=== PATIENT | female | born 1970 | race African-American/Black ===

== ENCOUNTER 2017-09-06 12:37 | Observation (INO) | payer MEDICARE, SELFPAY ==
[2017-09-06] VITALS (7 sets, daily range): BP systolic 110–142; BP diastolic 85–100; PULSE 54–80; RESP 14–18; TEMP 36.4–36.6; O2SAT 96–100; BMI 37.0; BMI 35.5
--- NOTE | 2017-09-06 13:51 | ED.RN ---
PT VERY DROWSY, FALLS ASLEEP DURING ASSESSMENT AND IV START, AWAKENS TO NAME. DIFFICULTY ANSWERING QUESTIONS, DENIES USING ANY SUBSTANCES OTHER THAN PRESCRIBED XANAX 1 MG TODAY.
--- NOTE | 2017-09-06 14:02 | CT_ITS ---
STUDY: CT BRAIN WITHOUT CONTRAST REASON FOR EXAM: Female, 47 years old. Altered mental status RADIATION DOSAGE (If Supplied By Facility): CTDIvol = ( 44.99 ) mGy, DLP = ( 796.11 ) mGycm TECHNIQUE: Transaxial CT imaging of the brain was performed without administration of intravenous contrast material. Individualized dose optimization techniques were used for this CT. COMPARISON: January 03, 2016 CT scan head FINDINGS: Normal soft tissue structures. Normal calvarium. 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 Normal size ventricles and extra-axial spaces for the patient's age. Normal white matter tracts of the cerebral hemispheres. Normal basal ganglia and thalami. Normal brainstem. Normal cerebellum. There is no intracranial hemorrhage. There are no findings of an acute ischemic infarction. Normal visualized paranasal sinuses. CT/Brain/Head without Contrast IMPRESSION: Normal unenhanced CT scan of the brain. Electronically Signed: Indira Davidson MD at 15:19 EDT Tel , Service support ,
[2017-09-06 14:15] LABS: Absolute Lymphocyte Count 2.74 X10^3/ul (0.83-4.51); Absolute Neutrophil Count 5.2 X10^3/uL (2.0-7.7); Basophil# 0.04 X10^3/uL; Basophil% 0.4 % (0-1); Eosinophil# 0.08 X10^3/uL; Eosinophils% 0.9 % (0-5); Hematocrit 35.8 % (37-47); Hemoglobin 11.8 g/dl (12.0-15.0); Lymphocyte # 2.74 X10^3/ul (4.0); Lymphocyte % 30.6 % (19-41); Mean Corpuscular Hgb 32.3 pg (27.0-32.0); Mean Corpuscular Volume 98.1 fL (81-99); Monocyte# 0.86 X10^3/uL; Monocyte% 9.6 % (0-10); Neutrophil # 5.23 X10^3/uL (2.7-7.7); Neutrophil % 58.4 % (47-70); POSITIVE COUNT NO; POSITIVE DIFFERENTIAL NO; POSITIVE MORPHOLOGY NO; Platelet Count 285 K/mm3 (150-450); RBC Distribution Width CV 13.2 % (11.6-14.6); RBC Distribution Width SD 46.3 fl (35.1-43.9); Red Blood Count 3.65 M/mm3 (4.2-5.4)
--- NOTE | 2017-09-06 14:25 | RAD_ITS ---
STUDY: X-RAY CHEST REASON FOR EXAM: Female, 47 years old. Syncopal episode TECHNIQUE: Single PA view of the chest. COMPARISON: July 07, 2016 chest x-ray FINDINGS: There is a left-sided defibrillator with the lead overlying the mid heart silhouette. The lungs are clear and expanded. There is no demonstrated pleural abnormality. There is borderline cardiac enlargement.. Normal mediastinum and krystian. Normal visualized pulmonary arteries. There is atherosclerotic calcification of the aortic arch with tortuosity. Normal visualized thoracic spine. Normal visualized ribs, clavicles, and shoulders. There is no demonstrated abnormality of the visualized soft tissue structures of the upper abdomen. RAD/Chest 1 View (Portable) IMPRESSION: Allowing for for differences in technique, stable chest. Defibrillator in stable position when compared to prior study. Electronically Signed: Indira Davidson MD at 15:27 EDT Tel , Service support ,
[2017-09-06 14:29] LABS: Anion Gap 9 (5-15); BUN 20 mg/dL (7-18); Chloride 97 mmol/L (98-107); Creatinine, Serum 2.49 mg/dL (0.55-1.02); EST Glomerular Filtration Rate 22 mL/min (>60); Est Glom Filt Rate - Afr Amer 27 mL/min (>60); Estimated Creatinine Clearance 27.87 ml/min; Glucose 87 mg/dL (74-106); Sodium Level 135 mmol/L (136-145)
[2017-09-06 14:51] LABS: Allen Test POS; Base Excess 1 mmol/L (-2 to +2); Bicarbonate 25.3 mmol/L (22-26); Blood Gas Specimen Type ART; O2 Delivery Device Room Air; PO2 64 mmHG (75-100); SITE L Radial; SO2 93 % (95-99); Time Given 1446; Total Carbon Dioxide 26 mmol/L; pCO2 36.8 mmHg (35-45); pH 7.45 (7.35-7.45)
--- NOTE | 2017-09-06 14:58 | EKG12_ITS ---
Test Reason : SYNCOPE Blood Pressure : / mmHG Vent. Rate : 069 BPM Atrial Rate : 069 BPM P-R Int : 166 ms QRS Dur : 076 ms QT Int : 444 ms P-R-T Axes : 061 025 037 degrees QTc Int : 475 ms Normal sinus rhythm Normal ECG Confirmed by MERCEDES MUNIZ, KALEIGH ([id number]), rewrite editor ANJANA DAVID ([id number]) on 09/09/2017 1:57:47 PM Referred By: AG Confirmed By:KALEIGH LONG MD
--- NOTE | 2017-09-06 15:52 | ED.VISSUMM ---
- ER Visit Summary Date of Service: 09/06/17 Chief Complaint: I am tired and stressed out. History of Present Illness: The patient is a 47 F who presents for reported syncope. She was at the [facility]. She was being seen for dental pain. She was reported to have had multiple episodes of syncope. However here she has just seemed tired and kept falling asleep per nursing staff. In speaking to the son he also states that she was just falling asleep and did not actually having syncopal episodes. Family states that she does often get like this after her medications and is on high doses of sedating medications. The patient otherwise has no complaints. She denies recent illness. Physical Examination: Afebrile vitals are stable Moist mucous membranes Patient is alert at the time my exam but does fall asleep easily. She is oriented and has no focal or lateralizing neurological deficits Moist mucous membranes Heart regular rate and rhythm Lungs are clear Abdomen soft Test Results: EKG shows sinus rhythm at a rate of 69. Chest x-ray is stable. CT of the head is normal. ABG does not show hypercapnia. Troponin is normal. Labs otherwise notable for potassium of 3.0 BUN of 20 and creatinine of 2.49 which is significantly increased from prior labs with a creatinine of 1.3. Emergency Department Course and Treatment: My suspicion is that the patient's somnolence is related to the high dose of her gabapentin and also taking benzodiazepines. Family notes that she does get like this after taking her medications. However her labs are also notable for an parent acute kidney injury. She was treated with IV fluids and her potassium was replaced. I do feel she should be admitted for observation repeat labs and monitoring of her mental status. Treatment Plan: [] Disposition: Admit Impression: Acute kidney injury Hypokalemia Altered mental status likely medication related This note was generated with [employer] dictation software. It may contain incorrect words, spelling, and punctuation that were not noted in review of the chart prior to signing ED Disposition - Plan for ED Patient: Chief Complaint: Syncope Referrals: Pito Walker MD [Primary Care Provider] -
--- NOTE | 2017-09-06 15:55 | ED.DCSUM_ITS ---
- ER Visit Summary Date of Service: 09/06/17 Chief Complaint: I am tired and stressed out. History of Present Illness: The patient is a 47 F who presents for reported syncope. She was at the [facility]. She was being seen for dental pain. She was reported to have had multiple episodes of syncope. However here she has just seemed tired and kept falling asleep per nursing staff. In speaking to the son he also states that she was just falling asleep and did not actually having syncopal episodes. Family states that she does often get like this after her medications and is on high doses of sedating medications. The patient otherwise has no complaints. She denies recent illness. Physical Examination: Afebrile vitals are stable Moist mucous membranes Patient is alert at the time my exam but does fall asleep easily. She is oriented and has no focal or lateralizing neurological deficits Moist mucous membranes Heart regular rate and rhythm Lungs are clear Abdomen soft Test Results: EKG shows sinus rhythm at a rate of 69. Chest x-ray is stable. CT of the head is normal. ABG does not show hypercapnia. Troponin is normal. Labs otherwise notable for potassium of 3.0 BUN of 20 and creatinine of 2.49 which is significantly increased from prior labs with a creatinine of 1.3. Emergency Department Course and Treatment: My suspicion is that the patient's somnolence is related to the high dose of her gabapentin and also taking benzodiazepines. Family notes that she does get like this after taking her medications. However her labs are also notable for an parent acute kidney injury. She was treated with IV fluids and her potassium was replaced. I do feel she should be admitted for observation repeat labs and monitoring of her mental status. Treatment Plan: [] Disposition: Admit Impression: Acute kidney injury Hypokalemia Altered mental status likely medication related This note was generated with [employer] dictation software. It may contain incorrect words, spelling, and punctuation that were not noted in review of the chart prior to signing ED Disposition - Plan for ED Patient: Chief Complaint: Syncope Referrals: Pito Walker MD [Primary Care Provider] -
--- NOTE | 2017-09-06 16:27 | PCM.HP.STD ---
<Melania Vogel - Last Filed: 09/06/17 16:55> Problem List (1) Acute deep vein thrombosis (DVT) of left lower extremity Status: Resolved (2) Neuropathy Status: Chronic (3) Neuropathic pain Status: Chronic (4) Chest pain Status: Resolved (5) Coronary artery disease Status: Ruled-out (6) Cardiac arrest with ventricular fibrillation Status: Chronic (7) VTE (venous thromboembolism) Status: Chronic (8) Prolonged Q-T interval on ECG Status: Resolved (9) Status post implantation of automatic cardioverter/defibrillator (AICD) Status: Chronic History of Present Illness Date of Admission: 09/06/17 Chief Complaint: Altered mental status, drowsiness. The patient is a 47 year old F who presents to the emergency room due to reported syncopal episodes and altered mental status during visit at [facility] where she was being seen for tooth pain. She states she was told her blood pressure was low at her appointment and she kept falling asleep. Son of patient spoke with ER staff who states patient was falling asleep and not unresponsive, no true syncope. Family reports this is a common occurrence for patient due to her sedating medications at home. ER nursing staff also report that patient is frequently in ER with similar presenting symptoms. Patient denies chest pain, shortness of breath. She denies and other associated complaints. She states she typically takes xanax twice a day. She states she has been under increased stress lately. She states she lives with her daughter who has a second child on the way and she states it is stressful for her to be living with young children. She denies alcohol or other drug use. Patient has a past medical history of DVT, cardiac arrest with V. fib status post AICD, schizophrenia, history of tobacco use, hypertension, anxiety, depression. Patient states she previously lived in [place] and was told that she had kidney issues at that time but has had no follow-up since. Past Medical History Past Medical History (Chronic Problems): Chronic Problems Neuropathy (Chronic) Neuropathic pain (Chronic) Cardiac arrest with ventricular fibrillation (Chronic) VTE (venous thromboembolism) (Chronic) Status post implantation of automatic cardioverter/defibrillator (AICD) (Chronic) Allergies Penicillins Allergy (Verified 09/06/17 12:41) Swelling Home Medications: Ambulatory Orders Medication Instructions Recorded Amlodipine [Norvasc] 10 mg PO DAILY 02/18/16 Gabapentin 900 mg PO TID 04/08/16 Acetaminophen [Tylenol] 325 mg PO Q4H PRN PRN 09/19/16 Lisinopril [Zestril] 20 mg PO DAILY 09/19/16 ALPRAZolam [Xanax] 1 mg PO BID 09/06/17 Apixaban [Eliquis] 5 mg PO BID 09/06/17 Duloxetine HCl [Duloxetine HCl] 1 cap PO DAILY 09/06/17 Hydrochlorothiazide [Hctz] 25 mg PO DAILY 09/06/17 Paliperidone [Paliperidone ER] 9 mg PO QHS 09/06/17 Surgical History: hysterectomy, - - Defibrillator placement Psychiatric History: Anxiety, Depression, Schizophrenia INSTRUCTIONAL ASSISTANT History: No pertinent INSTRUCTIONAL ASSISTANT history Lives: With Family Smoking Status: Former smoker Tobacco Use: Cigarettes Alcohol: None Drugs: None - *Family History Maternal History Items: Unknown - Patient does not know if her mother had cardiac disease, - Paternal History Items: Unknown - Patient does not know if her father had cardiac history Review of Systems Constitutional: Denies: Chills, Fever, Weight Change HEENT: Denies: Head Aches, Sinus Congestion, Sinus Drainage Cardiovascular: Denies: Chest Pain, Chest Tightness, Light Headedness, Palpitations, Syncope Respiratory: Denies: Cough, Shortness of breath at rest, Sputum production Gastrointestinal: Denies: Abdominal Pain, Nausea, Vomiting Genitourinary: Denies: Dysuria Musculoskeletal: Denies: Joint Pain, Joint Tenderness Skin: Denies: Rash, Wounds Neurological: Denies: Numbness, Tingling, Focal weakness Psychiatric: Reports: Anxiety, Depression Hematologic/ Lymphatic: Denies: Easy Bruising, Easy Bleeding VTE Information - Inpt Only VTE Present on Admission: No VTE Mechan Device Prophylaxis: None VTE Pharm Prophylaxis ordered?: Yes - Physical Exam General: Oriented x3, Cooperative, - - Drowsy HEENT: Atraumatic, PERRLA, EOMI, Normocephalic Oral: - - Poor dentition Neck: Supple, No JVD, Negative Carotid Bruits Lungs: Clear to auscultation, Normal air movement Cardiovascular: Regular rate, Regular Rhythm, Normal S1, Normal S2, No murmurs Abdomen: Bowel Sounds Present, Soft, Non Tender, Non-Distended Extremities: No clubbing, No cyanosis, No edema, Capillary Refill Less than 3 Seconds Skin: No rashes, No breakdown Musculoskeletal: No Tenderness to Palpation of Joints or Extremities Neurological: Cranial nerves II-XII grossly intact Vital Signs Temp Pulse Resp BP Pulse Ox 97.6 F L 59 L 16 124/100 H 96 09/06/17 12:38 09/06/17 15:40 09/06/17 15:40 09/06/17 15:40 09/06/17 15:40 Oxygen Delivery Method Room Air Weight: 110.5 kg Body Mass Index (BMI) 37.0 Laboratory Tests Past 24 Hrs 09/06/17 09/06/17 09/06/17 13:05 13:05 14:48 WBC 9.0 RBC 3.65 L Hgb 11.8 L Hct 35.8 L MCV 98.1 MCH 32.3 H MCHC 33.0 RDW 13.2 RDW Differential 46.3 H Plt Count 285 MPV 10.0 Immature Gran % (Auto) 0.100 Neut % (Auto) 58.4 Lymph % (Auto) 30.6 [place] % (Auto) 9.6 Eos % (Auto) 0.9 Baso % (Auto) 0.4 Absolute Neuts (auto) 5.2 Absolute Lymphs (auto) 2.74 Total Counted Not Reportable Specimen Type ART Sample Site L Radial pH 7.45 Bicarbonate Actual 25.3 POC Total CO2 26 Base Excess 1 O2 Saturation 93 L ABG pCO2 36.8 ABG pO2 64 L Heath Test POS O2 Delivery Device Room Air Blood Gas Notified Whom ED Blood Gas Notified Time 1446 Sodium 135 L Potassium 3.0 L Chloride 97 L Carbon Dioxide 29.0 Anion Gap 9 BUN 20 H Creatinine 2.49 H Estim Creat Clear Calc 27.87 Est GFR (MDRD) Af Amer 27 L Est GFR (MDRD) Non-Af 22 L BUN/Creatinine Ratio 8.0 L Glucose 87 Calcium 9.0 Troponin I < 0.015 Assessment/Plan 1. Altered mental status-reported frequently falling asleep during office visit earlier today. Suspected secondary to patient's sedating medications. Family reports this occurs often. Hold sedating regimen. Brain CT unremarkable. Chest x-ray unremarkable. Troponin negative. Recommend reducing patient's gabapentin regimen at discharge and tapering Xanax with eventual discontinuation given recurrent episodes of drowsiness/altered mental status. Check TSH, mag. Check ammonia level. Urine tox screen. 2. Acute kidney injury on suspected chronic kidney disease-patient states she has been told she had kidney problems when she previously lived in [place]. No follow-up since. IV fluids. Monitor BMP. If no improvement with IV fluids, consider nephrology consult, FENa, kidney ultrasound. 3. Hypokalemia-replace per protocol. Monitor BMP. 4. Hypertension-stable, continue home regimen of amlodipine. Hold HCTZ and lisinopril secondary to #2. As needed hydralazine. 5. History of DVT-continue Eliquis. 6. History of cardiac arrest with V. fib status post AICD-follows with cardiology and [facility]. 7. Schizophrenia/depression/anxiety-continue home paliperidone, duloxetine regimen. Recommend reducing home gabapentin regimen and tapering Xanax with eventual discontinuation given recurrent episodes of drowsiness/altered mental status. 8. History of tobacco use-denies current use. Encouraged continued cessation. 9. Obesity-encouraged diet and lifestyle modifications. DVT prophylaxis-Eliquis. This patient was seen by PHYLLIS Kirk under the supervision of Dr. Garrison. <Eliu Garrison - Last Filed: 09/06/17 19:55> History of Present Illness Seen and examined. Patient was sent to ER by urgent care for multiple episodes of unresponsiveness/falling sleep as mentioned above. The patient is on multiple antipsychotic/neurological medications including duloxetine Xanax, high-dose of gabapentin 900 mg 3 times daily and paliperidone for schizophrenia. When I saw the patient, she was still lethargic but awake. [] Past Medical History Allergies Penicillins Allergy (Verified 09/06/17 12:41) Swelling - Physical Exam General: Lethargic, - Extremities: No clubbing, No cyanosis, No edema, Capillary Refill Less than 3 Seconds Neurological: Cranial nerves II-XII grossly intact Vital Signs Temp Pulse Resp BP Pulse Ox 97.8 F 77 14 142/85 H 97 09/06/17 18:31 09/06/17 18:31 09/06/17 18:31 09/06/17 18:31 09/06/17 18:31 Oxygen Delivery Method Room Air Weight: 236 lb 15.951 oz Body Mass Index (BMI) 35.5 Laboratory Tests Past 24 Hrs 09/06/17 09/06/17 09/06/17 16:47 18:03 18:30 Magnesium 2.3 Ammonia 29.0 Urine Opiates Screen NEGATIVE Urine Methadone Screen NEGATIVE Ur Barbiturates Screen NEGATIVE Ur Phencyclidine Scrn NEGATIVE Ur Amphetamines Screen NEGATIVE U Methamphetamin-MDMA NEGATIVE U Benzodiazepines Scrn POSITIVE H Urine Cocaine Screen NEGATIVE U Cannabinoids Screen NEGATIVE Ur Drug Screen Comment Assessment/Plan This patient was seen in conjunction with [facility] INSERTER[facility]. I have independently interviewed and examined the patient and reviewed pertinent history, examination findings, laboratory and plan of management. I have reviewed the note and agree with the documented findings with the few additional points. In brief, patient is admitted for acute encephalopathy most related to multiple antipsychotic/nerve pills. In ER, she was also found to have acute kidney injury on suspected chronic kidney disease stage III. Her baseline creatinine 1.3 increased to 2.5. Labs and IV fluid and medications ordered. I have discussed my assessment with TISSUE INSERTERMelania and orders have been reviewed. Laboratory Results 09/06/17 13:05: WBC 9.0, RBC 3.65 L, Hgb 11.8 L, Hct 35.8 L, MCV 98.1, MCH 32.3 H, MCHC 33.0, RDW 13.2, RDW Differential 46.3 H, Plt Count 285, MPV 10.0, Immature Gran % (Auto) 0.100, Neut % (Auto) 58.4, Lymph % (Auto) 30.6, [place] % (Auto) 9.6, Eos % (Auto) 0.9, Baso % (Auto) 0.4, Absolute Neuts (auto) 5.2, Absolute Lymphs (auto) 2.74, Total Counted Not Reportable 09/06/17 13:05: Sodium 135 L, Potassium 3.0 L, Chloride 97 L, Carbon Dioxide 29.0, Anion Gap 9, BUN 20 H, Creatinine 2.49 H, Estim Creat Clear Calc 27.87, Est GFR (MDRD) Af Amer 27 L, Est GFR (MDRD) Non-Af 22 L, BUN/Creatinine Ratio 8.0 L, Glucose 87, Calcium 9.0, Troponin I < 0.015 09/06/17 13:05: TSH 0.89 09/06/17 14:48: Specimen Type ART, Sample Site L Radial, pH 7.45, Bicarbonate Actual 25.3, POC Total CO2 26, Base Excess 1, O2 Saturation 93 L, ABG pCO2 36.8, ABG pO2 64 L, Heath Test POS, O2 Delivery Device Room Air, Blood Gas Notified Whom ED , Blood Gas Notified Time 9195 09/06/17 16:47: Magnesium 2.3 09/06/17 18:03: Ammonia 29.0 09/06/17 18:30: Urine Opiates Screen NEGATIVE, Urine Methadone Screen NEGATIVE, Ur Barbiturates Screen NEGATIVE, Ur Phencyclidine Scrn NEGATIVE, Ur Amphetamines Screen NEGATIVE, U Methamphetamin-MDMA NEGATIVE, U Benzodiazepines Scrn POSITIVE H, Urine Cocaine Screen NEGATIVE, U Cannabinoids Screen NEGATIVE, Ur Drug Screen Comment Code Visit Inpatient E&M: 02604 Init Hosp L3
--- NOTE | 2017-09-06 16:28 | NURSING ---
PCU OBS SYNCOPE NERY
--- NOTE | 2017-09-06 16:37 | HP.PCM_ITS ---
<Melania Vogel - Last Filed: 09/06/17 16:55> Problem List (1) Acute deep vein thrombosis (DVT) of left lower extremity Status: Resolved (2) Neuropathy Status: Chronic (3) Neuropathic pain Status: Chronic (4) Chest pain Status: Resolved (5) Coronary artery disease Status: Ruled-out (6) Cardiac arrest with ventricular fibrillation Status: Chronic (7) VTE (venous thromboembolism) Status: Chronic (8) Prolonged Q-T interval on ECG Status: Resolved (9) Status post implantation of automatic cardioverter/defibrillator (AICD) Status: Chronic History of Present Illness Date of Admission: 09/06/17 Chief Complaint: Altered mental status, drowsiness. The patient is a 47 year old F who presents to the emergency room due to reported syncopal episodes and altered mental status during visit at [facility] where she was being seen for tooth pain. She states she was told her blood pressure was low at her appointment and she kept falling asleep. Son of patient spoke with ER staff who states patient was falling asleep and not unresponsive, no true syncope. Family reports this is a common occurrence for patient due to her sedating medications at home. ER nursing staff also report that patient is frequently in ER with similar presenting symptoms. Patient denies chest pain, shortness of breath. She denies and other associated complaints. She states she typically takes xanax twice a day. She states she has been under increased stress lately. She states she lives with her daughter who has a second child on the way and she states it is stressful for her to be living with young children. She denies alcohol or other drug use. Patient has a past medical history of DVT, cardiac arrest with V. fib status post AICD, schizophrenia, history of tobacco use, hypertension, anxiety, depression. Patient states she previously lived in [place] and was told that she had kidney issues at that time but has had no follow-up since. Past Medical History Past Medical History (Chronic Problems): Chronic Problems Neuropathy (Chronic) Neuropathic pain (Chronic) Cardiac arrest with ventricular fibrillation (Chronic) VTE (venous thromboembolism) (Chronic) Status post implantation of automatic cardioverter/defibrillator (AICD) (Chronic ) Allergies Penicillins Allergy (Verified 09/06/17 12:41) Swelling Home Medications: Ambulatory Orders Medication Instructions Recorded Amlodipine [Norvasc] 10 mg PO DAILY 02/18/16 Gabapentin 900 mg PO TID 04/08/16 Acetaminophen [Tylenol] 325 mg PO Q4H PRN PRN 09/19/16 Lisinopril [Zestril] 20 mg PO DAILY 09/19/16 ALPRAZolam [Xanax] 1 mg PO BID 09/06/17 Apixaban [Eliquis] 5 mg PO BID 09/06/17 Duloxetine HCl [Duloxetine HCl] 1 cap PO DAILY 09/06/17 Hydrochlorothiazide [Hctz] 25 mg PO DAILY 09/06/17 Paliperidone [Paliperidone ER] 9 mg PO QHS 09/06/17 Surgical History: hysterectomy, - - Defibrillator placement Psychiatric History: Anxiety, Depression, Schizophrenia ECONOMIC HISTORIAN History: No pertinent ECONOMIC HISTORIAN history Lives: With Family Smoking Status: Former smoker Tobacco Use: Cigarettes Alcohol: None Drugs: None - *Family History Maternal History Items: Unknown - Patient does not know if her mother had cardiac disease , - Paternal History Items: Unknown - Patient does not know if her father had cardiac history Review of Systems Constitutional: Denies: Chills, Fever, Weight Change HEENT: Denies: Head Aches, Sinus Congestion, Sinus Drainage Cardiovascular: Denies: Chest Pain, Chest Tightness, Light Headedness, Palpitations, Syncope Respiratory: Denies: Cough, Shortness of breath at rest, Sputum production Gastrointestinal: Denies: Abdominal Pain, Nausea, Vomiting Genitourinary: Denies: Dysuria Musculoskeletal: Denies: Joint Pain, Joint Tenderness Skin: Denies: Rash, Wounds Neurological: Denies: Numbness, Tingling, Focal weakness Psychiatric: Reports: Anxiety, Depression Hematologic/ Lymphatic: Denies: Easy Bruising, Easy Bleeding VTE Information - Inpt Only VTE Present on Admission: No VTE Mechan Device Prophylaxis: None VTE Pharm Prophylaxis ordered?: Yes - Physical Exam General: Oriented x3, Cooperative, - - Drowsy HEENT: Atraumatic, PERRLA, EOMI, Normocephalic Oral: - - Poor dentition Neck: Supple, No JVD, Negative Carotid Bruits Lungs: Clear to auscultation, Normal air movement Cardiovascular: Regular rate, Regular Rhythm, Normal S1, Normal S2, No murmurs Abdomen: Bowel Sounds Present, Soft, Non Tender, Non-Distended Extremities: No clubbing, No cyanosis, No edema, Capillary Refill Less than 3 Seconds Skin: No rashes, No breakdown Musculoskeletal: No Tenderness to Palpation of Joints or Extremities Neurological: Cranial nerves II-XII grossly intact Vital Signs Temp Pulse Resp BP Pulse Ox 97.6 F L 59 L 16 124/100 H 96 09/06/17 12:38 09/06/17 15:40 09/06/17 15:40 09/06/17 15:40 09/06/17 15:40 Oxygen Delivery Method Room Air Weight: 110.5 kg Body Mass Index (BMI) 37.0 Laboratory Tests Past 24 Hrs 09/06/17 09/06/17 09/06/17 13:05 13:05 14:48 WBC 9.0 RBC 3.65 L Hgb 11.8 L Hct 35.8 L MCV 98.1 MCH 32.3 H MCHC 33.0 RDW 13.2 RDW Differential 46.3 H Plt Count 285 MPV 10.0 Immature Gran % (Auto) 0.100 Neut % (Auto) 58.4 Lymph % (Auto) 30.6 [place] % (Auto) 9.6 Eos % (Auto) 0.9 Baso % (Auto) 0.4 Absolute Neuts (auto) 5.2 Absolute Lymphs (auto) 2.74 Total Counted Not Reportable Specimen Type ART Sample Site L Radial pH 7.45 Bicarbonate Actual 25.3 POC Total CO2 26 Base Excess 1 O2 Saturation 93 L ABG pCO2 36.8 ABG pO2 64 L Heath Test POS O2 Delivery Device Room Air Blood Gas Notified Whom ED Blood Gas Notified Time 1446 Sodium 135 L Potassium 3.0 L Chloride 97 L Carbon Dioxide 29.0 Anion Gap 9 BUN 20 H Creatinine 2.49 H Estim Creat Clear Calc 27.87 Est GFR (MDRD) Af Amer 27 L Est GFR (MDRD) Non-Af 22 L BUN/Creatinine Ratio 8.0 L Glucose 87 Calcium 9.0 Troponin I < 0.015 Assessment/Plan 1. Altered mental status-reported frequently falling asleep during office visit earlier today. Suspected secondary to patient's sedating medications. Family reports this occurs often. Hold sedating regimen. Brain CT unremarkable. Chest x-ray unremarkable. Troponin negative. Recommend reducing patient's gabapentin regimen at discharge and tapering Xanax with eventual discontinuation given recurrent episodes of drowsiness/altered mental status. Check TSH, mag. Check ammonia level. Urine tox screen. 2. Acute kidney injury on suspected chronic kidney disease-patient states she has been told she had kidney problems when she previously lived in [place]. No follow-up since. IV fluids. Monitor BMP. If no improvement with IV fluids, consider nephrology consult, FENa, kidney ultrasound. 3. Hypokalemia-replace per protocol. Monitor BMP. 4. Hypertension-stable, continue home regimen of amlodipine. Hold HCTZ and lisinopril secondary to #2. As needed hydralazine. 5. History of DVT-continue Eliquis. 6. History of cardiac arrest with V. fib status post AICD-follows with cardiology and [place]. 7. Schizophrenia/depression/anxiety-continue home paliperidone, duloxetine regimen. Recommend reducing home gabapentin regimen and tapering Xanax with eventual discontinuation given recurrent episodes of drowsiness/altered mental status. 8. History of tobacco use-denies current use. Encouraged continued cessation. 9. Obesity-encouraged diet and lifestyle modifications. DVT prophylaxis-Eliquis. This patient was seen by PHYLLIS Kirk under the supervision of Dr. Garrison. <Eliu Garrison - Last Filed: 09/06/17 19:55> History of Present Illness Seen and examined. Patient was sent to ER by urgent care for multiple episodes of unresponsiveness/falling sleep as mentioned above. The patient is on multiple antipsychotic/neurological medications including duloxetine Xanax, high -dose of gabapentin 900 mg 3 times daily and paliperidone for schizophrenia. When I saw the patient, she was still lethargic but awake. [] Past Medical History Allergies Penicillins Allergy (Verified 09/06/17 12:41) Swelling - Physical Exam General: Lethargic, - Extremities: No clubbing, No cyanosis, No edema, Capillary Refill Less than 3 Seconds Neurological: Cranial nerves II-XII grossly intact Vital Signs Temp Pulse Resp BP Pulse Ox 97.8 F 77 14 142/85 H 97 09/06/17 18:31 09/06/17 18:31 09/06/17 18:31 09/06/17 18:31 09/06/17 18:31 Oxygen Delivery Method Room Air Weight: 236 lb 15.951 oz Body Mass Index (BMI) 35.5 Laboratory Tests Past 24 Hrs 09/06/17 09/06/17 09/06/17 16:47 18:03 18:30 Magnesium 2.3 Ammonia 29.0 Urine Opiates Screen NEGATIVE Urine Methadone Screen NEGATIVE Ur Barbiturates Screen NEGATIVE Ur Phencyclidine Scrn NEGATIVE Ur Amphetamines Screen NEGATIVE U Methamphetamin-MDMA NEGATIVE U Benzodiazepines Scrn POSITIVE H Urine Cocaine Screen NEGATIVE U Cannabinoids Screen NEGATIVE Ur Drug Screen Comment Assessment/Plan This patient was seen in conjunction with ROLL EDGE MACHINE OPERATORMelania. I have independently interviewed and examined the patient and reviewed pertinent history, examination findings, laboratory and plan of management. I have reviewed the note and agree with the documented findings with the few additional points. In brief, patient is admitted for acute encephalopathy most related to multiple antipsychotic/nerve pills. In ER, she was also found to have acute kidney injury on suspected chronic kidney disease stage III. Her baseline creatinine 1.3 increased to 2.5. Labs and IV fluid and medications ordered. I have discussed my assessment with ROLL EDGE MACHINE OPERATORMelania and orders have been reviewed. Laboratory Results 09/06/17 13:05: WBC 9.0, RBC 3.65 L, Hgb 11.8 L, Hct 35.8 L, MCV 98.1, MCH 32.3 H, MCHC 33.0, RDW 13.2, RDW Differential 46.3 H, Plt Count 285, MPV 10.0, Immature Gran % (Auto) 0.100, Neut % (Auto) 58.4, Lymph % (Auto) 30.6, [place] % ( Auto) 9.6, Eos % (Auto) 0.9, Baso % (Auto) 0.4, Absolute Neuts (auto) 5.2, Absolute Lymphs (auto) 2.74, Total Counted Not Reportable 09/06/17 13:05: Sodium 135 L, Potassium 3.0 L, Chloride 97 L, Carbon Dioxide 29.0, Anion Gap 9, BUN 20 H, Creatinine 2.49 H, Estim Creat Clear Calc 27.87, Est GFR (MDRD) Af Amer 27 L, Est GFR (MDRD) Non-Af 22 L, BUN/Creatinine Ratio 8.0 L, Glucose 87, Calcium 9.0, Troponin I < 0.015 09/06/17 13:05: TSH 0.89 09/06/17 14:48: Specimen Type ART, Sample Site L Radial, pH 7.45, Bicarbonate Actual 25.3, POC Total CO2 26, Base Excess 1, O2 Saturation 93 L, ABG pCO2 36.8 , ABG pO2 64 L, Heath Test POS, O2 Delivery Device Room Air, Blood Gas Notified Whom ED , Blood Gas Notified Time 1030 09/06/17 16:47: Magnesium 2.3 09/06/17 18:03: Ammonia 29.0 09/06/17 18:30: Urine Opiates Screen NEGATIVE, Urine Methadone Screen NEGATIVE, Ur Barbiturates Screen NEGATIVE, Ur Phencyclidine Scrn NEGATIVE, Ur Amphetamines Screen NEGATIVE, U Methamphetamin-MDMA NEGATIVE, U Benzodiazepines Scrn POSITIVE H, Urine Cocaine Screen NEGATIVE, U Cannabinoids Screen NEGATIVE, Ur Drug Screen Comment Code Visit Inpatient E&M: 16429 Init Hosp L3
[2017-09-06] MEDS: 0.9% Normal Saline 1,000 ML 999 ML IV (16:42)
[2017-09-06 18:19] LABS: Magnesium 2.3 mg/dL (1.6-2.6)
[2017-09-06 18:36] LABS: Thyroid Stim Hormone (TSH) 0.89 uIU/mL (0.358-3.74)
[2017-09-06] MEDS: 0.9% Normal Saline 1,000 ML 150 ML IV ×2 (18:46→21:53)
[2017-09-06 18:54] LABS: Amphetamine Urine VISTA NEGATIVE (<1000 ng/mL); Barbiturate Urine VISTA NEGATIVE (< 200 ng/mL); Benzodiazepine Urine VISTA POSITIVE (< 200 ng/mL); Cocaine Urine VISTA NEGATIVE (< 300 ng/mL); Ecstacy Urine VISTA NEGATIVE (< 500 ng/mL); Methadone Urine VISTA NEGATIVE (< 300 ng/mL); PCP Urine VISTA NEGATIVE (< 25 ng/mL); THC Urine VISTA NEGATIVE (< 50 ng/mL); Vista UDS pH Range 6
[2017-09-06] MEDS: APIXABAN 5 MG TABLET PO (21:49)
[2017-09-07] VITALS (7 sets, daily range): BP systolic 111–121; BP diastolic 60–80; PULSE 57–78; RESP 16; TEMP 37–37.1; O2SAT 95–97
[2017-09-07] MEDS: 0.9% Normal Saline 1,000 ML 150 ML IV (04:09)
[2017-09-07 06:49] LABS: ALB/GLOB Ratio 0.8 RATIO (0.9-2.4); AST(SGOT) 8 U/L (15-37); Alanine Aminotransfer ALT/SGPT 10 U/L (13-56); Albumin, Serum 3.3 g/dL (3.2-5.0); Alkaline Phosphatase 82 U/L (45-117); Anion Gap 8 (5-15); BUN 18 mg/dL (7-18); Calcium,Total 8.7 mg/dL (8.5-10.1); Chloride 108 mmol/L (98-107); EST Glomerular Filtration Rate 39 mL/min (>60); Est Glom Filt Rate - Afr Amer 48 mL/min (>60); Estimated Creatinine Clearance 46.27 ml/min; Globulin 4.2 g/dL (2.2-4.2); Glucose 112 mg/dL (74-106); Potassium 3.3 mmol/L (3.5-5.1); Protein, Total 7.5 g/dL (6.4-8.2); Sodium Level 141 mmol/L (136-145)
[2017-09-07] MEDS: Acetaminophen 325 MG Tablet PO (08:55)
[2017-09-07] MEDS: APIXABAN 5 MG TABLET PO (08:56)
[2017-09-07] MEDS: amLODIPine 10 MG Tablet PO (08:56)
[2017-09-07] MEDS: DULoxetine Hcl 30 MG Capsule PO (09:10)
--- NOTE | 2017-09-07 11:03 | PCM.DC ---
You will use the following diet at home:: Calorie/Carbohydrate Controlled (specify 1200, 1400, etc), Cardiac Discharge Activity: Return to Normal Activity Call your doctor if you observe: Shortness of breath, Dizziness, Fainting spells, Chest pain, Increased palpitations (irregular heartbeat) Additional Instructions: Your sedating medications were reduced. Your gabapentin was reduced to 600 mg 3 times daily. Recommend reducing your Xanax to 0.5 milligram twice daily as needed. Recommend continued tapering by primary care physician with eventual discontinuation given its sedating effects. Your hydrochlorothiazide was decreased to 12.5 mg due to low potassium. These changes were made to her home medication list however they were not prescribed given you have these medications already available at home. Allergies/Adverse Reactions: Allergies Penicillins Allergy (Verified 09/06/17 12:41) Swelling Medications to take at Discharge Amlodipine [Norvasc] 10 mg PO DAILY 02/18/16 Acetaminophen [Tylenol] 325 mg PO Q4H PRN PRN 09/19/16 Lisinopril [Zestril] 20 mg PO DAILY 09/19/16 Apixaban [Eliquis] 5 mg PO BID 09/06/17 Duloxetine HCl 1 cap PO DAILY 09/06/17 Paliperidone [Paliperidone ER] 9 mg PO QHS 09/06/17 ALPRAZolam [Xanax] 0.5 mg PO BID #1 tablet 09/07/17 Gabapentin [Neurontin] 600 mg PO TIDCM #30 tablet 09/07/17 Hydrochlorothiazide [Hctz] 12.5 mg PO DAILY #30 tablet 09/07/17 The following prescriptions were given: Hydrochlorothiazide [Hctz] 12.5 mg PO DAILY #30 tablet ALPRAZolam [Xanax] 0.5 mg PO BID #1 tablet Gabapentin [Neurontin] 600 mg PO TIDCM #30 tablet Primary Care Physician: Pito Walker MD [Primary Care Provider] - Please follow up with your Primary Care Physician in: 1 Week Proposed Discharge Date: 09/07/17
--- NOTE | 2017-09-07 11:06 | DCINST_ITS ---
You will use the following diet at home:: Calorie/Carbohydrate Controlled ( specify 1200, 1400, etc), Cardiac Discharge Activity: Return to Normal Activity Call your doctor if you observe: Shortness of breath, Dizziness, Fainting spells , Chest pain, Increased palpitations (irregular heartbeat) Additional Instructions: Your sedating medications were reduced. Your gabapentin was reduced to 600 mg 3 times daily. Recommend reducing your Xanax to 0.5 milligram twice daily as needed. Recommend continued tapering by primary care physician with eventual discontinuation given its sedating effects. Your hydrochlorothiazide was decreased to 12.5 mg due to low potassium. These changes were made to her home medication list however they were not prescribed given you have these medications already available at home. Allergies/Adverse Reactions: Allergies Penicillins Allergy (Verified 09/06/17 12:41) Swelling Medications to take at Discharge Amlodipine [Norvasc] 10 mg PO DAILY 02/18/16 Acetaminophen [Tylenol] 325 mg PO Q4H PRN PRN 09/19/16 Lisinopril [Zestril] 20 mg PO DAILY 09/19/16 Apixaban [Eliquis] 5 mg PO BID 09/06/17 Duloxetine HCl 1 cap PO DAILY 09/06/17 Paliperidone [Paliperidone ER] 9 mg PO QHS 09/06/17 ALPRAZolam [Xanax] 0.5 mg PO BID #1 tablet 09/07/17 Gabapentin [Neurontin] 600 mg PO TIDCM #30 tablet 09/07/17 Hydrochlorothiazide [Hctz] 12.5 mg PO DAILY #30 tablet 09/07/17 The following prescriptions were given: Hydrochlorothiazide [Hctz] 12.5 mg PO DAILY #30 tablet ALPRAZolam [Xanax] 0.5 mg PO BID #1 tablet Gabapentin [Neurontin] 600 mg PO TIDCM #30 tablet Primary Care Physician: Pito Walker MD [Primary Care Provider] - Please follow up with your Primary Care Physician in: 1 Week Proposed Discharge Date: 09/07/17
--- NOTE | 2017-09-07 11:08 | PCM.DC.SUM ---
Discharge Date and Diagnosis Date of Admission: 09/06/17 Date of Discharge: 09/07/17 - Primary Discharge Diagnosis 1. Altered mental status secondary to sedating home medication regimen 2. Acute kidney injury on suspected chronic kidney disease-secondary to dehydration. 3. Hypokalemia 4. Hypertension 5. History of DVT 6. History of cardiac arrest with V. fib status post AICD 7. Schizophrenia/depression/anxiety 8. History of tobacco use 9. Obesity - Secondary Discharge Diagnosis Chronic Problems Neuropathy (Chronic) Neuropathic pain (Chronic) Cardiac arrest with ventricular fibrillation (Chronic) VTE (venous thromboembolism) (Chronic) Status post implantation of automatic cardioverter/defibrillator (AICD) (Chronic) Hospital Course and Treatment Imaging Results: Diagnostic Data Brain CT 09/06/17 14:02 IMPRESSION: Normal unenhanced CT scan of the brain. Electronically Signed: Indira Davidson MD at 15:19 EDT Tel , Service support , Chest X-Ray 09/06/17 14:25 IMPRESSION: Allowing for for differences in technique, stable chest. Defibrillator in stable position when compared to prior study. Electronically Signed: Indira Davidson MD at 15:27 EDT Tel , Service support , Operations: None Procedures: None Summary of Care Provided: Patient is a 47-year-old female admitted 09/06/2017 due to altered mental status, drowsiness. Patient has a past medical history of DVT, cardiac arrest with V. fib status post AICD, schizophrenia, history of tobacco use, hypertension, anxiety, depression. Patient is known to have frequent admissions with similar presenting symptoms due to home sedating medication regimen. Family also reports this is a common occurrence for patient due to her home medication regimen. 1. Altered mental status-reported frequently falling asleep during office visit prior to admission. Secondary to patient's sedating medications. Family reports this occurs often. Brain CT unremarkable. Chest x-ray unremarkable. Troponin negative. Urine tox screen positive for benzodiazepines. Patient's home gabapentin regimen was decreased to 600 mg 3 times daily and Xanax decreased to 0.5 mg twice daily as needed. Recommend further tapering of Xanax with eventual discontinuation by primary care physician or prescribing physician. 2. Acute kidney injury on suspected chronic kidney disease-suspect secondary to dehydration. Creatinine now at baseline after receiving IV fluids. Patient states she has been told she had kidney problems when she previously lived in [place]. No follow-up since. Continue outpatient follow-up with primary care physician with further referral as necessary. 3. Hypokalemia-replaced per protocol. Suspect secondary to HCTZ. HCTZ dose reduced to 12.5 mg daily at discharge. 4. Hypertension-stable, continue home regimen of amlodipine, lisinopril. HCTZ decreased to 12.5 mg daily. 5. History of DVT-continue Eliquis. 6. History of cardiac arrest with V. fib status post AICD-follows with cardiology and [place]. 7. Schizophrenia/depression/anxiety-continue home paliperidone, duloxetine regimen. Recommend reducing home gabapentin regimen and tapering Xanax with eventual discontinuation given recurrent episodes of drowsiness/altered mental status. 8. History of tobacco use-denies current use. Encouraged continued cessation. 9. Obesity-encouraged diet and lifestyle modifications. General: Oriented x3, Cooperative, - - Drowsy HEENT: Atraumatic, PERRLA, EOMI, Normocephalic Oral: - - Poor dentition Neck: Supple, No JVD, Negative Carotid Bruits Lungs: Clear to auscultation, Normal air movement Cardiovascular: Regular rate, Regular Rhythm, Normal S1, Normal S2, No murmurs Abdomen: Bowel Sounds Present, Soft, Non Tender, Non-Distended Extremities: No clubbing, No cyanosis, No edema, Capillary Refill Less than 3 Seconds Skin: No rashes, No breakdown Musculoskeletal: No Tenderness to Palpation of Joints or Extremities Neurological: Cranial nerves II-XII grossly intact Patient seen and examined prior to discharge. Physical assessment as noted above. Patient stable for discharge home with the follow-up recommendations as noted above. This patient was seen by PHYLLIS Kirk under the supervision of Dr. Courtney. Discharge Diet: Low fat/ Low Cholesterol Discharge Activity: Return to Normal Activity Call your doctor if you observe: Shortness of breath, Dizziness, Fainting spells, Chest pain, Increased palpitations (irregular heartbeat) Home Medications: Medications to take at Discharge Amlodipine [Norvasc] 10 mg PO DAILY 02/18/16 Acetaminophen [Tylenol] 325 mg PO Q4H PRN PRN 09/19/16 Lisinopril [Zestril] 20 mg PO DAILY 09/19/16 Apixaban [Eliquis] 5 mg PO BID 09/06/17 Duloxetine HCl 1 cap PO DAILY 09/06/17 Paliperidone [Paliperidone ER] 9 mg PO QHS 09/06/17 ALPRAZolam [Xanax] 0.5 mg PO BID #1 tablet 09/07/17 Gabapentin [Neurontin] 600 mg PO TIDCM #30 tablet 09/07/17 Hydrochlorothiazide [Hctz] 12.5 mg PO DAILY #30 tablet 09/07/17 Following Prescrptions Were Given to Patient: Hydrochlorothiazide [Hctz] 12.5 mg PO DAILY #30 tablet ALPRAZolam [Xanax] 0.5 mg PO BID #1 tablet Gabapentin [Neurontin] 600 mg PO TIDCM #30 tablet Primary Care Physician: Pito Walker MD [Primary Care Provider] - Please follow up with your Primary Care Physician in: 1 Week Disposition: Home Minutes spent on discharge:: 35 Patient Condition:: Stable Medical Necessity - Tobacco Use Smoking Status: Former smoker Tobacco Use: Cigarettes Meaningful Use Info Meaningful Use Diagnoses (Choose all that apply): None applicable
--- NOTE | 2017-09-07 11:15 | DS.PCM_ITS ---
Discharge Date and Diagnosis Date of Admission: 09/06/17 Date of Discharge: 09/07/17 - Primary Discharge Diagnosis 1. Altered mental status secondary to sedating home medication regimen 2. Acute kidney injury on suspected chronic kidney disease-secondary to dehydration. 3. Hypokalemia 4. Hypertension 5. History of DVT 6. History of cardiac arrest with V. fib status post AICD 7. Schizophrenia/depression/anxiety 8. History of tobacco use 9. Obesity - Secondary Discharge Diagnosis Chronic Problems Neuropathy (Chronic) Neuropathic pain (Chronic) Cardiac arrest with ventricular fibrillation (Chronic) VTE (venous thromboembolism) (Chronic) Status post implantation of automatic cardioverter/defibrillator (AICD) (Chronic ) Hospital Course and Treatment Imaging Results: Diagnostic Data Brain CT 09/06/17 14:02 IMPRESSION: Normal unenhanced CT scan of the brain. Electronically Signed: Indira Davidson MD at 15:19 EDT Tel , Service support , Chest X-Ray 09/06/17 14:25 IMPRESSION: Allowing for for differences in technique, stable chest. Defibrillator in stable position when compared to prior study. Electronically Signed: Indira Davidson MD at 15:27 EDT Tel , Service support , Operations: None Procedures: None Summary of Care Provided: Patient is a 47-year-old female admitted 09/06/2017 due to altered mental status , drowsiness. Patient has a past medical history of DVT, cardiac arrest with V. fib status post AICD, schizophrenia, history of tobacco use, hypertension, anxiety, depression. Patient is known to have frequent admissions with similar presenting symptoms due to home sedating medication regimen. Family also reports this is a common occurrence for patient due to her home medication regimen. 1. Altered mental status-reported frequently falling asleep during office visit prior to admission. Secondary to patient's sedating medications. Family reports this occurs often. Brain CT unremarkable. Chest x-ray unremarkable. Troponin negative. Urine tox screen positive for benzodiazepines. Patient's home gabapentin regimen was decreased to 600 mg 3 times daily and Xanax decreased to 0.5 mg twice daily as needed. Recommend further tapering of Xanax with eventual discontinuation by primary care physician or prescribing physician. 2. Acute kidney injury on suspected chronic kidney disease-suspect secondary to dehydration. Creatinine now at baseline after receiving IV fluids. Patient states she has been told she had kidney problems when she previously lived in [place]. No follow-up since. Continue outpatient follow-up with primary care physician with further referral as necessary. 3. Hypokalemia-replaced per protocol. Suspect secondary to HCTZ. HCTZ dose reduced to 12.5 mg daily at discharge. 4. Hypertension-stable, continue home regimen of amlodipine, lisinopril. HCTZ decreased to 12.5 mg daily. 5. History of DVT-continue Eliquis. 6. History of cardiac arrest with V. fib status post AICD-follows with cardiology and [place]. 7. Schizophrenia/depression/anxiety-continue home paliperidone, duloxetine regimen. Recommend reducing home gabapentin regimen and tapering Xanax with eventual discontinuation given recurrent episodes of drowsiness/altered mental status. 8. History of tobacco use-denies current use. Encouraged continued cessation. 9. Obesity-encouraged diet and lifestyle modifications. General: Oriented x3, Cooperative, - - Drowsy HEENT: Atraumatic, PERRLA, EOMI, Normocephalic Oral: - - Poor dentition Neck: Supple, No JVD, Negative Carotid Bruits Lungs: Clear to auscultation, Normal air movement Cardiovascular: Regular rate, Regular Rhythm, Normal S1, Normal S2, No murmurs Abdomen: Bowel Sounds Present, Soft, Non Tender, Non-Distended Extremities: No clubbing, No cyanosis, No edema, Capillary Refill Less than 3 Seconds Skin: No rashes, No breakdown Musculoskeletal: No Tenderness to Palpation of Joints or Extremities Neurological: Cranial nerves II-XII grossly intact Patient seen and examined prior to discharge. Physical assessment as noted above. Patient stable for discharge home with the follow-up recommendations as noted above. This patient was seen by PHYLLIS Kirk under the supervision of Dr. Courtney. Discharge Diet: Low fat/ Low Cholesterol Discharge Activity: Return to Normal Activity Call your doctor if you observe: Shortness of breath, Dizziness, Fainting spells , Chest pain, Increased palpitations (irregular heartbeat) Home Medications: Medications to take at Discharge Amlodipine [Norvasc] 10 mg PO DAILY 02/18/16 Acetaminophen [Tylenol] 325 mg PO Q4H PRN PRN 09/19/16 Lisinopril [Zestril] 20 mg PO DAILY 09/19/16 Apixaban [Eliquis] 5 mg PO BID 09/06/17 Duloxetine HCl 1 cap PO DAILY 09/06/17 Paliperidone [Paliperidone ER] 9 mg PO QHS 09/06/17 ALPRAZolam [Xanax] 0.5 mg PO BID #1 tablet 09/07/17 Gabapentin [Neurontin] 600 mg PO TIDCM #30 tablet 09/07/17 Hydrochlorothiazide [Hctz] 12.5 mg PO DAILY #30 tablet 09/07/17 Following Prescrptions Were Given to Patient: Hydrochlorothiazide [Hctz] 12.5 mg PO DAILY #30 tablet ALPRAZolam [Xanax] 0.5 mg PO BID #1 tablet Gabapentin [Neurontin] 600 mg PO TIDCM #30 tablet Primary Care Physician: Pito Walker MD [Primary Care Provider] - Please follow up with your Primary Care Physician in: 1 Week Disposition: Home Minutes spent on discharge:: 35 Patient Condition:: Stable Medical Necessity - Tobacco Use Smoking Status: Former smoker Tobacco Use: Cigarettes Meaningful Use Info Meaningful Use Diagnoses (Choose all that apply): None applicable
== END 2017-09-07 11:06 | disposition home or self-care (01) ==
LOC: ED 14:56 → PCU 16:38
PROVIDERS: Nurse Practitioner Family; Admitting Provider Internal Medicine; Emergency Provider Emergency Medicine; Family Provider Family Medicine; PCP Family Medicine; Visit Provider Internal Medicine
DX: R55 Syncope and collapse (principal); R41.82 Altered mental status, unspecified; I25.10 Atherosclerotic heart disease of native coronary artery without angina pectoris; E86.0 Dehydration; E87.6 Hypokalemia; I10 Essential (primary) hypertension; F20.9 Schizophrenia, unspecified; F41.9 Anxiety disorder, unspecified; F32.9 Major depressive disorder, single episode, unspecified; E66.9 Obesity, unspecified; G62.9 Polyneuropathy, unspecified; Z95.810 Presence of automatic (implantable) cardiac defibrillator; Z86.74 Personal history of sudden cardiac arrest; Z86.718 Personal history of other venous thrombosis and embolism; Z68.35 Body mass index [BMI] 35.0-35.9, adult; Z71.3 Dietary counseling and surveillance; Z87.891 Personal history of nicotine dependence; Z79.899 Other long term (current) drug therapy; Z79.01 Long term (current) use of anticoagulants
CPT/HCPCS: 36415; 36600; 70450; 71045; 80048; 80053; 80307; 82140; 82803; 83735; 84443; 84484; 85025; 93005; 96360; 96361; 99218; 99285; J7030; A4216; G0378

== ENCOUNTER 2018-10-23 10:37 | Observation (INO) | payer MEDICARE, SELFPAY ==
[2018-10-23 10:40] VITALS: BP 124/81; PULSE 68; RESP 18; TEMP 36.6; O2SAT 100; BMI 31.0
--- NOTE | 2018-10-23 10:52 | VDLE_ITS ---
Reason For Study: Swelling Procedure LEFT Exam performed portable in ED. GSV is normal. Lt PTV not well visualized due to swelling. Lt CFV, SFJ, FV prox partially compressible Venous flow is noted with color. with minimal flow noted. A preliminary report was called and/or faxed Acute deep vein thrombosis noted in mid - to [place]. distal FV. Acute deep vein thrombosis is noted in the left popliteal vein. Acute deep vein thrombosis is noted in the left peroneal vein. PTV is compressible. Interpretation Summary Acute deep vein thrombosis is noted in the left common femoral vein. Acute deep vein thrombosis is noted in the left femoral vein. Acute deep vein thrombosis is noted in the left popliteal vein. Acute deep vein thrombosis is noted in the left tibio-peroneal trunk. Acute deep vein thrombosis is noted in the left peroneal vein. The left posterior tibial vein appears patent and compressible. The left greater saphenous vein appears patent and compressible segmentally. Ordering Physician: Cruz Ashraf Referring Physician: MD Aaron Pito Performed By: Michelle Banda RVT
--- NOTE | 2018-10-23 11:19 | ED.DCSUM_ITS ---
- ER Visit Summary Date of Service: 10/23/18 Chief Complaint: Lower extremity swelling History of Present Illness: The patient is a 48 F who has a history of left lower extremity DVT and is on Eliquis presents with increasing redness and pain. Patient was seen at [place] 5 days ago. She was diagnosed with a lower externally cellulitis and started on Keflex. She presented to her primary care today complaining of persistent redness. Due to concern for outpatient failure of treatment, she was sent in for further evaluation. She denies any fevers or chills. The patient states that she has definitely been compliant with her medication. She has an extensive medical history including cardiac arrest secondary to prolonged QT and has a pacemaker defibrillator. She has a known DVT in her lower extremity and has had it for over 2 years. She denies any trauma. She is still ambulating. Physical Examination: Exam is relatively unremarkable. The patient does have market edema of her left lower extremity to the mid thigh. She has normal pulses. There is some erythema, but no significant skin breakdown or weeping. There is no crepitus. Test Results: [] Emergency Department Course and Treatment: The patient does have significant edema of her lower extremity. I did repeat ultrasound. It does appear as if she has new acute DVT in the lower extremity. I am not sure if this is because of noncompliance versus failure of her anticoagulant. I do not feel this represents infection. Labs are otherwise unremarkable. She does have anemia which appears chronic. Patient be bridged with Lovenox. She was discussed with the hospitalist will be admitted observation.] Treatment Plan: [] Disposition: [] Impression: 1. Left lower extremity DVT-acute on chronic with failed anticoagulant therapy This note was generated with [employer] dictation software. It may contain incorrect words, spelling, and punctuation that were not noted in review of the chart prior to signing ED Disposition - Plan for ED Patient: Referrals: Pito Walker MD [Primary Care Provider] -
[2018-10-23 11:42] LABS: Absolute Lymphocyte Count 2.25 X10^3/ul (0.83-4.51); Absolute Neutrophil Count 3.5 X10^3/uL (2.0-7.7); Basophil# 0.03 X10^3/uL; Basophil% 0.5 % (0-1); Eosinophil# 0.09 X10^3/uL; Eosinophils% 1.4 % (0-5); Hematocrit 26.8 % (37-47); Hemoglobin 8.3 g/dl (12.0-15.0); Lymphocyte # 2.25 X10^3/ul (4.0); Mean Corpuscular Hgb 31.2 pg (27.0-32.0); Mean Corpuscular Volume 100.8 fL (81-99); Mean Platelet Vol. 8.9 fl (6.2-12.0); Monocyte% 10.6 % (0-10); Neutrophil # 3.53 X10^3/uL (2.7-7.7); Neutrophil % 53.3 % (47-70); Platelet Count 332 K/mm3 (150-450); RBC Distribution Width CV 14.9 % (11.6-14.6); RBC Distribution Width SD 54.7 fl (35.1-43.9); Red Blood Count 2.66 M/mm3 (4.2-5.4); White Blood Count 6.6 K/mm3 (4.4-11.0)
[2018-10-23 11:43] LABS: POSITIVE COUNT NO; POSITIVE DIFFERENTIAL NO; POSITIVE MORPHOLOGY NO
[2018-10-23 11:46] VITALS: BP 140/106; PULSE 50; PULSE 55; RESP 18; TEMP 36.6; O2SAT 100
[2018-10-23 11:56] LABS: ALB/GLOB Ratio 0.8 RATIO (0.9-2.4); AST(SGOT) 14 U/L (15-37); Alanine Aminotransfer ALT/SGPT 15 U/L (13-56); Albumin, Serum 3.1 g/dL (3.2-5.0); Alkaline Phosphatase 70 U/L (45-117); Anion Gap 7 (5-15); BUN 23 mg/dL (7-18); BUN/Creat Ratio 17.6 RATIO (10-20); Calcium,Total 8.6 mg/dL (8.5-10.1); Chloride 111 mmol/L (98-107); Creatinine, Serum 1.31 mg/dL (0.55-1.02); EST Glomerular Filtration Rate 46 mL/min (>60); Est Glom Filt Rate - Afr Amer 55 mL/min (>60); Estimated Creatinine Clearance 50.52 ml/min; Globulin 4.1 g/dL (2.2-4.2); Glucose 89 mg/dL (74-106); Potassium 3.9 mmol/L (3.5-5.1); Protein, Total 7.2 g/dL (6.4-8.2); Sodium Level 143 mmol/L (136-145)
[2018-10-23 12:01] LABS: International Normalized Ratio 1.3; Prothrombin Time (Protime)PT. 16.4 SECONDS (11.7-14.9)
[2018-10-23 12:02] LABS: Partial Thromboplast Time 33.5 Seconds (24.1-36.2)
--- NOTE | 2018-10-23 12:04 | NURSING ---
DR NERY COOPER
--- NOTE | 2018-10-23 12:04 | NURSING ---
DR GABRIEL IN ER
--- NOTE | 2018-10-23 12:04 | NURSING ---
MED SURG LLE DVT NERY
[2018-10-23 12:18] VITALS: BP 167/97; PULSE 53; RESP 16; TEMP 36.6; O2SAT 100
[2018-10-23] MEDS: Enoxaparin 100 MG/ML Syringe 90 MG SC ×2 (12:33→23:22)
--- NOTE | 2018-10-23 12:37 | PCM.HP.STD ---
Problem List (1) Recurrent DVT on anticoagulant Status: Acute (2) Cardiac arrest with ventricular fibrillation Status: Chronic (3) Neuropathic pain Status: Chronic (4) Neuropathy Status: Chronic (5) Status post implantation of automatic cardioverter/defibrillator (AICD) Status: Chronic (6) VTE (venous thromboembolism) Status: Chronic (7) Chest pain Status: Resolved Qualifiers: (8) Prolonged Q-T interval on ECG Status: Resolved (9) Coronary artery disease Status: Ruled-out History of Present Illness Date of Admission: 10/23/18 Chief Complaint: Left lower extremity swelling. The patient is a 48 year old F who came to ED with left lower extremity swelling, redness and pain for about 3 to 4 weeks. Prior to that patient was seen in [place] ER about 5 days ago and she completed 5 days course of Keflex for presumed cellulitis. Due to the concern for worsening swelling, redness and pain she went to her PCP from there she came to ER. She denies fever or chills. She had fever chills about 10 days ago. She does not have any blister. She has history of DVT/PE since March 2016 for which she was admitted in March 2016 and was sent home on Eliquis. In ED, venous Doppler was done and was found positive of left lower extremity DVT. Past Medical History Past Medical History (Chronic Problems): Chronic Problems Neuropathy (Chronic) Neuropathic pain (Chronic) Cardiac arrest with ventricular fibrillation (Chronic) VTE (venous thromboembolism) (Chronic) Status post implantation of automatic cardioverter/defibrillator (AICD) (Chronic) Allergies Penicillins Allergy (Verified 10/23/18 10:42) Swelling Home Medications: Ambulatory Orders Medication Instructions Recorded Amlodipine [Norvasc] 10 mg PO DAILY 02/18/16 Acetaminophen [Tylenol] 325 mg PO Q4H PRN PRN 09/19/16 Lisinopril [Zestril] 20 mg PO DAILY 09/19/16 Apixaban [Eliquis] 5 mg PO BID 09/06/17 Paliperidone [Paliperidone ER] 9 mg PO QHS 09/06/17 Hydrochlorothiazide [Hctz] 12.5 mg PO DAILY #30 tablet 09/07/17 ALPRAZolam [Xanax] 1 mg PO BID 10/23/18 Aripiprazole [Abilify Maintena] 400 mg IM QMONTH 10/23/18 Gabapentin [Neurontin] 900 mg PO TIDCM 10/23/18 Tamsulosin HCl [Flomax] 0.4 mg PO DAILY 10/23/18 Surgical History: hysterectomy, - - Defibrillator placement Psychiatric History: Anxiety, Depression, Schizophrenia 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 Smoking Status: Former smoker - *Family History Maternal History Items: Unknown - Patient does not know if her mother had cardiac disease, - Paternal History Items: Unknown - Patient does not know if her father had cardiac history Review of Systems Constitutional: Denies: Chills, Fever, Weight Change HEENT: Denies: Head Aches, Sinus Congestion, Sinus Drainage Cardiovascular: Denies: Chest Pain, Palpitations Respiratory: Denies: Cough, Shortness of breath at rest, Sputum production Gastrointestinal: Denies: Abdominal Pain, Nausea, Vomiting Genitourinary: Denies: Dysuria Musculoskeletal: Reports: Joint Pain, Joint Tenderness, Leg Pain Skin: Denies: Rash, Wounds Neurological: Denies: Numbness, Tingling, Focal weakness Psychiatric: Denies: Anxiety, Depression, Homicidal Ideations, Suicidal Ideations Hematologic/ Lymphatic: Denies: Easy Bruising, Easy Bleeding VTE Information - Inpt Only VTE Present on Admission: No VTE Mechan Device Prophylaxis: None VTE Pharm Prophylaxis ordered?: Yes Patient Problems: Active and Suspected Problems Recurrent DVT on anticoagulant (Acute) - Physical Exam General: Alert, Oriented x3, Cooperative HEENT: Atraumatic, PERRLA, EOMI, Normocephalic Neck: Supple, No JVD, Negative Carotid Bruits Lungs: Clear to auscultation, Normal air movement, Diminished - Air entry is diminished in bilateral lung bases Cardiovascular: Regular rate, Regular Rhythm, Normal S1, Normal S2, No murmurs Abdomen: Bowel Sounds Present, Soft, Non Tender, Non-Distended Extremities: No edema, Capillary Refill Less than 3 Seconds Skin: Rash Present - Diffuse erythema present in the left lower extremity mainly over below left knee along with skin induration and tightness and edema. Left lower extremity is twice the size of the right lower extremity. Musculoskeletal: No Tenderness to Palpation of Joints or Extremities, Arthritic Changes Lymphatic: No Cervical, Supraclavicular, or Inguinal Adenopathy Neurological: Cranial nerves II-XII grossly intact, Deep Tendon Reflexes 2+/4 and Symmetrical, Neuro grossly intact Psych/Mental Status: Normal Affect, Appropriate Vital Signs Temp Pulse Resp BP Pulse Ox 98 F 53 L 16 167/97 H 100 10/23/18 12:18 10/23/18 12:18 10/23/18 12:18 10/23/18 12:18 10/23/18 12:18 Oxygen Delivery Method Room Air Weight: 198 lb Body Mass Index (BMI) 31.0 Laboratory Tests Past 24 Hrs 10/23/18 10/23/18 10/23/18 11:30 11:30 11:44 WBC 6.6 RBC 2.66 L Hgb 8.3 L Hct 26.8 L MCV 100.8 H MCH 31.2 MCHC 31.0 L RDW 14.9 H RDW Differential 54.7 H Plt Count 332 MPV 8.9 Immature Gran % (Auto) 0.200 Neut % (Auto) 53.3 Lymph % (Auto) 34.0 [place] % (Auto) 10.6 H Eos % (Auto) 1.4 Baso % (Auto) 0.5 Absolute Neuts (auto) 3.5 Absolute Lymphs (auto) 2.25 Total Counted Not Reportable PT 16.4 H INR 1.3 APTT 33.5 Sodium 143 Potassium 3.9 Chloride 111 H Carbon Dioxide 25.0 Anion Gap 7 BUN 23 H Creatinine 1.31 H Estim Creat Clear Calc 50.52 Est GFR (MDRD) Af Amer 55 L Est GFR (MDRD) Non-Af 46 L BUN/Creatinine Ratio 17.6 Glucose 89 Calcium 8.6 Total Bilirubin 0.30 AST 14 L ALT 15 Alkaline Phosphatase 70 Total Protein 7.2 Albumin 3.1 L Globulin 4.1 Albumin/Globulin Ratio 0.8 L Assessment/Plan All Active Problems Recurrent DVT on anticoagulant (Acute) Chest pain (Resolved) Coronary artery disease (Ruled-out) Prolonged Q-T interval on ECG (Resolved) Acute deep vein thrombosis (DVT) of left lower extremity (Resolved) The patient is a 48 year old F who came to ED with left lower extremity swelling, redness and pain for about 3 to 4 weeks. Prior to that patient was seen in [place] ER about 5 days ago and she completed 5 days course of Keflex for presumed cellulitis. Due to the concern for worsening swelling, redness and pain she went to her PCP from there she came to ER. She denies fever or chills. She had fever chills about 10 days ago. She does not have any blister. She has history of DVT/PE since March 2016 for which she was admitted in March 2016 and was sent home on Eliquis. In ED, venous Doppler was done and was found positive of left lower extremity DVT. Venous Doppler shows acute DVT in mid to distal femoral vein, left popliteal vein, left peroneal vein 1. Left lower extremity recurrent DVT on oral anticoagulant: Patient is being admitted to [facility] floor. Started on Lovenox 1 mg/kg body weight every 12 hourly with Coumadin 5 mg oral daily. On IV fluid normal saline at 100 mL/h. 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 He advised prothrombin gene mutation and anticardiolipin IgM and IgG. Venous Doppler in in July 2017 in [facility] reported as chronic DVT in the left distal external iliac vein, common femoral vein. Collaterals noted at the level of distal external iliac vein. Chronic DVT and femoral vein at the proximal thigh level with collaterals with partial venous recanalization. 2. Recent left lower extremity cellulitis completed 5 days of Keflex: There is no fever or chills. No tachycardia or leukocytosis. We will watch for fever. 3. Coronary artery disease, history of cardiac arrest with ventricular fibrillation status post AICD, prolonged QT on EKG: Home medications continued. Currently patient does not have chest pain or shortness of breath. 4. Chronic back pain with neuropathic pain: Patient saw pain doctor in the past but did not follow-up because of financial issues. Laboratory Results 10/23/18 11:30: WBC 6.6, RBC 2.66 L, Hgb 8.3 L, Hct 26.8 L, MCV 100.8 H, MCH 31.2, MCHC 31.0 L, RDW 14.9 H, RDW Differential 54.7 H, Plt Count 332, MPV 8.9, Immature Gran % (Auto) 0.200, Neut % (Auto) 53.3, Lymph % (Auto) 34.0, [place] % (Auto) 10.6 H, Eos % (Auto) 1.4, Baso % (Auto) 0.5, Absolute Neuts (auto) 3.5, Absolute Lymphs (auto) 2.25, Total Counted Not Reportable 10/23/18 11:30: Sodium 143, Potassium 3.9, Chloride 111 H, Carbon Dioxide 25.0, Anion Gap 7, BUN 23 H, Creatinine 1.31 H, Estim Creat Clear Calc 50.52, Est GFR (MDRD) Af Amer 55 L, Est GFR (MDRD) Non-Af 46 L, BUN/Creatinine Ratio 17.6, Glucose 89, Calcium 8.6, Total Bilirubin 0.30, AST 14 L, ALT 15, Alkaline Phosphatase 70, Total Protein 7.2, Albumin 3.1 L, Globulin 4.1, Albumin/Globulin Ratio 0.8 L 10/23/18 11:44: PT 16.4 H, INR 1.3, APTT 33.5 Code Visit Inpatient E&M: 44587 Init Hosp L3
[2018-10-23 13:30] VITALS: BP 138/85; PULSE 62; RESP 16; TEMP 37.2; O2SAT 100
[2018-10-23 13:44] VITALS: BMI 29.7
--- NOTE | 2018-10-23 13:53 | CASEMGMT ---
Addendum entered by Michelle Balderas 10/23/18 17:14: Patient Address: [address] [place] [address] [place] [address]. Cell PH: [phone]. Original Note: RN CM Assessment Introduced role of RN CM to patient, with small granddaughter at bedside.? Patient is alert, oriented and able?to participate in RN CM Assessment. ?Care providers, pharmacy, and demographics verified. Presentation: Increased redness and pain to LLE. H/o LLE DVT on Eliquis, has had x2yrs. States Compliant with medication. x1 month has had redness and swelling and had been to [facility], [place], and [place]- was Dx with Cellulitis and prescribed 5days of Keflex in which she completed a couple days ago. F/u with PCP today and referred to ER for concern of failed Outpatient Tx. Admit Dx: LLE DVT Re-Admit: No Barriers/Issues: Drove Dtrs car to hospital and Dtr will have to come pickle cutter her granddtr and vehicle from hospital. Patient state that she s/w someone about HMO- from [employer]?? and should have been switching to an HMO- states that person never called back- uncertainty regarding this conversation. PCP: Pito Walker Specialists: Cardio- Pravin Ramirez- Rashid Bran Preferred Pharmacy: [facility] Insurance: [employer] [facility] Rx Benefit:?Yes LNOK: Dtr Lidya Jorge Alberto LW/HPOA: None. Would like information. Living Arrangements:? Lives with her Dtr in a 2 story home, Bedroom in [facility], 15-16 steps to get to Bedroom, 6-7 steps to enter home. ADL?s: Independent with ambulation and ADLs Transportation: Dtr on DC, Patient drives normally. DME: None HHC: None SNF: None Goal: Home, does not think will need anything. Denies questions or concerns. Aware CM remains available for any emerging needs. DC PLAN: Home with no anticipated needs identified at this time. Possible Rx coupon card if anticoagulation changes. GEGE Timmons
[2018-10-23 13:54] VITALS: BMI 29.8
[2018-10-23] MEDS: 0.9% Normal Saline 1,000 ML 100 ML IV ×2 (14:10→23:21)
[2018-10-23] MEDS: Acetaminophen 325 MG Tablet 650 MG PO (16:15)
[2018-10-23] MEDS: oxyCODONE 5 MG Tablet PO ×2 (16:15→21:59)
[2018-10-23 16:46] LABS: Bedside Glucose 106 mg/dL (70-110)
--- NOTE | 2018-10-23 17:05 | CON.PCM_ITS ---
Subjective Date of Service:: 10/23/18 Chief Complaint: LLE DVT History of Present Illness: Ms. Jasmine Simpson is a 48 year old woman with a PMH significant for SC, defibrillator placement, anxiety/depression and schizophrenia admitted for the management of LLE DVT. Presented to [facility] on 10/23/18 with c/o worsening LLE pain and edema subsequent to completing a course of atb for presumed LLE cellulitis. Found to have acute on chronic LLE DVT. Upon entering the room the patient is awake, upright in bed. Interview futile, patient required direction during questioning. Very difficult to obtain an accurate history, but essentially patient reports her first DVT occurred in the LLE approx 30 days after she experienced SC approx 11/2015. She was then placed on Xarelto. States she developed a new clot in 2017. (Doppler obtained 09/18/16 reviewed, shows acute and chronic deep vein thrombosis in the left common femoral vein and left sapheno-femoral junction) Reports at that time she was transferred to [facility] and multiple things were tried but failed and she was told to transition to Eliquis and that she would require lifelong anticoagulation. States d/t cost she was not able to receive Eliquis of late and pcp transitioned her to warfarin. Believes INR may have been subtherapeutic at times. She later received some form of patient assistance and was able to restart Eliquis (she could not give me approx dates of these occurrences). Moreover she spent time at [facility] and is unsure if she was receiving Eliquis during her admission (again she was unable to provide time frame). States she has been adherent to anticoagulation since being home with her daughter. C/o 11/01 LLE pain, primary team managing. Patient states controlled with OxyIR at the present time. During initial ROS she denied SOB/CP however upon leaving the room, the patient called me back in and reported substernal CP. Describes as occurring intermittently x 2 weeks, CP is accompanied by a feeling of anxiety. H/o panic attacks. Past Medical History: Chronic Problems Neuropathy (Chronic) Neuropathic pain (Chronic) Cardiac arrest with ventricular fibrillation (Chronic) VTE (venous thromboembolism) (Chronic) Status post implantation of automatic cardioverter/defibrillator (AICD) (Chronic) Past Medical/Surgical History: Past Medical History - Most Recent Inpatient Visit Past Medical History Start: 10/23/18 13:30 Text: Status: Complete Freq: ONCE Protocol: Document 10/23/18 13:54 [facility] (Rec: 10/23/18 14:01 [facility] [id number]) BMI Required to complete PMH What is Patient's BMI 29.8 Past Medical History Unable History Recalled Yes Query Text:Pt Unable/Family Not Present Neurologic Medical History Hx Stroke/TIA No Hx Dementia/Alzheimer's No Hx Parkinson's Disease No Hx Seizures No Hx Multiple Sclerosis No Hx Migraines Yes Cardiac Medical History VTE Present on Admission Yes Hx of Deep Vein Thrombosis/VTE/PE Yes Hx Hypertension Yes Hx Chest Pain/Angina Yes Hx Heart Attack Yes Hx Cardiac Surgery/Stents/Etc. Yes: icd placed Hx Heart Failure No Hx Pacemaker/AICD Yes Hx Irregular Heartbeat and/or Afib No Hx Anticoagulant Therapy Yes: Xarelto Query Text:(Coumadin, Aspirin, Plavix, Xarelto, etc.) Hx Pain in Legs when Walking/Leg Cramps Yes: neuropathy Respiratory Medical History Hx COPD Yes Hx Emphysema No Hx Smoking Yes Smoking Status Former smoker Years Smoking 30 Hx Smoking Exposure Yes Hx Tobacco Use in last 12 months Yes Sent to [facility] Yes Hx of Pipe Smoking No Hx Sleep Apnea No Do you snore loudly (louder than talking No or can be heard through closed doors)? Do you often feel tired/ fatigued/ No sleepy during daytime? Has anyone observed you stop breathing Yes during sleep? STOP Results Positive GI Medical History Hx Ulcer Yes Hx Hepatitis No Hx Cirrhosis No Hx GI Bleed No Hx Unplanned Weight Loss No Genitourinary Medical History Indwelling Catheter in Place on Arrival/ No Admission Hx Renal Disease No Hx Dialysis No Musculoskeletal History Hx Arthritis Yes Hx Rheumatoid Arthritis No Endocrine Medical History Hx Diabetes No Hx Thyroid Disease No Hematologic Medical History Hx of Blood Transfusion No Hx of Transfusion in last 3 Months No Ever experience any problems with No transfusion(s)? Hx of Preganancy in last 3 Months N/A Nurse Filling Out Transfusion & AHOSTETLE2 Questions: Date: 10/23/18 Time: 13:59 Psycho/Social Medical History Hx Depression Yes Hx Anxiety Yes Hx Behavior Disorder Yes: scitzophrenia Hx Alcohol Use No Hx Substance Use No Other Medical History Hx Blood Disorders No Hx Anemia No Hx Cancer No Hx Drug Resistant Organism No Wound/Pressure Injury Present on Arrival No /Admission Query Text:If yes, chart assessment in Shift/Clinical Findings Central Line/PICC/VAD Present on Arrival No /Admission Antibiotics within last 7 days? Yes Methicillin Resistant Staphylococcus aureus Screening Active MRSA No Risk for Readmission Number of Risk Factors 6 At Risk for Readmission Patient is At Risk For Readmission Patient is eligible for Call Back Y Maternal Family History: Unknown - Patient does not know if her mother had cardiac disease, - Paternal Family History: Unknown - Patient does not know if her father had cardiac history - Social History Smoking Status: Former smoker Allergies/Adverse Reactions: Allergy/AdvReac Type Severity Reaction Status Date / Time Penicillins Allergy Swelling Verified 10/23/18 10:42 Review of Systems Constitutional:: Reports: Fatigue. Denies: Fever, Sweats, Weight loss, Appetite change, Chills Cardiovascular:: Reports: Chest pain - see HPI. Denies: Palpitations, Dyspnea on exertion, Orthopnea, PND, Shortness of breath Respiratory: Denies: Cough, Hemoptysis, Shortness of Breath, Wheezing Gastrointestinal:: Denies: Abdominal pain, Nausea, Vomiting, Diarrhea, Constipation, Melena, Hematochezia, Dysphagia Genitourinary: Denies: Dysuria, Hematuria, 15, Flank pain Musculoskeletal:: Reports: - - LLE pain (see HPI). Denies: Back pain Skin: Denies: Rash, Skin Changes, Wounds Neurological:: Denies: Headache, Dizziness, Numbness, Tingling, Visual changes, Tinnitus, Hearing loss Psychiatric: Reports: Anxiety, Depression. Denies: Homicidal Ideations, Suicidal Ideations Vital Signs Height 5 ft 8.5 in Weight: 198 lb 10.184 oz Weight in Pounds 198.6 lbs Pulse Ox 100 Temperature 98.9 F Pulse Rate 62 Respiratory Rate 16 Blood Pressure 138/85 Blood Pressure Position Semi-Fowlers - Physical Exam General: Alert, Oriented x3 HEENT: Atraumatic, PERRLA, EOMI, Normocephalic Oropharynx:: Negative for: Dry mucosa, Ulcerated lesions Neck:: Supple, Trachea midline. Negative for: JVD, bilateral Cardiac:: Regular rate, Regular rhythm, Normal S1, Normal S2. Negative for: Murmur Lungs: Clear to auscultation, Excusion symmetrical. Negative for: Rhonchi, Wheezes Abdomen:: Bowel sounds x 4, Soft, Non-tender, Non-distended. Negative for: Hepatosplenomegaly Extremities:: Edema - LLE with diffuse erythema distal the knee + induration, warm to the touch. In comparison, LLE twice the size of RLE, Calf tenderness, Diminished peripheral pulses. Negative for: Cyanosis Neurological: Neuro grossly intact Skin:: Negative for: Lesions, Rash, Petechiae, Ecchymosis Psychiatric:: Appropriate affect, Euthymic Lymphatics:: Negative for: Cervical lymphadenopathy, Supraclavicular lymphadenopathy, Axillary lymphadenopathy Laboratory Data: Laboratory Tests 10/23/18 10/23/18 10/23/18 Range/Units 16:37 11:44 11:30 WBC (4.4-11.0) K/mm3 RBC (4.2-5.4) M/mm3 Hgb (12.0-15.0) g/dl Hct (37-47) % MCV (81-99) fL MCH (27.0-32.0) pg MCHC (32-36) g/gl RDW (11.6-14.6) % RDW Differential (35.1-43.9) fl Plt Count (150-450) K/mm3 MPV (6.2-12.0) fl Immature Gran % (Auto) (0.0-0.9) % Neut % (Auto) (47-70) % Lymph % (Auto) (19-41) % Childress % (Auto) (0-10) % Eos % (Auto) (0-5) % Baso % (Auto) (0-1) % Absolute Neuts (auto) (2.0-7.7) X10^3/uL Absolute Lymphs (auto) (0.83-4.51) X10^3/ul Total Counted PT 16.4 H (11.7-14.9) SECONDS INR 1.3 APTT 33.5 (24.1-36.2) Seconds Sodium 143 (136-145) mmol/L Potassium 3.9 (3.5-5.1) mmol/L Chloride 111 H (98-107) mmol/L Carbon Dioxide 25.0 (21.0-32.0) mmol/L Anion Gap 7 (5-15) BUN 23 H (7-18) mg/dL Creatinine 1.31 H (0.55-1.02) mg/dL Estim Creat Clear Calc 50.52 ml/min Est GFR (MDRD) Af Amer 55 L (>60) mL/min Est GFR (MDRD) Non-Af 46 L (>60) mL/min BUN/Creatinine Ratio 17.6 (10-20) RATIO Glucose 89 (74-106) mg/dL Calcium 8.6 (8.5-10.1) mg/dL Total Bilirubin 0.30 (0.20-1.00) mg/dL AST 14 L (15-37) U/L ALT 15 (13-56) U/L Alkaline Phosphatase 70 (45-117) U/L Total Protein 7.2 (6.4-8.2) g/dL Albumin 3.1 L (3.2-5.0) g/dL Globulin 4.1 (2.2-4.2) g/dL Albumin/Globulin Ratio 0.8 L (0.9-2.4) RATIO POC Glucose 106 (70-110) mg/dL 10/23/18 Range/Units 11:30 WBC 6.6 (4.4-11.0) K/mm3 RBC 2.66 L (4.2-5.4) M/mm3 Hgb 8.3 L (12.0-15.0) g/dl Hct 26.8 L (37-47) % MCV 100.8 H (81-99) fL MCH 31.2 (27.0-32.0) pg MCHC 31.0 L (32-36) g/gl RDW 14.9 H (11.6-14.6) % RDW Differential 54.7 H (35.1-43.9) fl Plt Count 332 (150-450) K/mm3 MPV 8.9 (6.2-12.0) fl Immature Gran % (Auto) 0.200 (0.0-0.9) % Neut % (Auto) 53.3 (47-70) % Lymph % (Auto) 34.0 (19-41) % Childress % (Auto) 10.6 H (0-10) % Eos % (Auto) 1.4 (0-5) % Baso % (Auto) 0.5 (0-1) % Absolute Neuts (auto) 3.5 (2.0-7.7) X10^3/uL Absolute Lymphs (auto) 2.25 (0.83-4.51) X10^3/ul Total Counted Not Reportable PT (11.7-14.9) SECONDS INR APTT (24.1-36.2) Seconds Sodium (136-145) mmol/L Potassium (3.5-5.1) mmol/L Chloride (98-107) mmol/L Carbon Dioxide (21.0-32.0) mmol/L Anion Gap (5-15) BUN (7-18) mg/dL Creatinine (0.55-1.02) mg/dL Estim Creat Clear Calc ml/min Est GFR (MDRD) Af Amer (>60) mL/min Est GFR (MDRD) Non-Af (>60) mL/min BUN/Creatinine Ratio (10-20) RATIO Glucose (74-106) mg/dL Calcium (8.5-10.1) mg/dL Total Bilirubin (0.20-1.00) mg/dL AST (15-37) U/L ALT (13-56) U/L Alkaline Phosphatase (45-117) U/L Total Protein (6.4-8.2) g/dL Albumin (3.2-5.0) g/dL Globulin (2.2-4.2) g/dL Albumin/Globulin Ratio (0.9-2.4) RATIO POC Glucose (70-110) mg/dL Assessment and Plan 1. Acute on chronic LLE DVT- History is patchy, although suspect non adherence to anticoagulation (d/t cost, amongst other factors) vs. failed therapy with a direct oral agent. Continue Lovenox for now. Prothrombin gene mutation and anticardiolipin IgM and IgG have already been ordered. 2. Chest discomfort- Describes as substernal, intermittently x 2 weeks. Accompanied by feelings of anxiety. Consistent with panic attacks experienced in the past, although given the clinical picture, will obtain CTA. (GFR 46, receiving support with IVFs) Case discussed with Dr. Beyer, who was in agreement with the aforementioned plan. Juliet Paz, LUIS CARLOS, PRESS ASSISTANT-C, AOCNP Medications: Prescriptions This Visit Medication Instructions Recorded ALPRAZolam [Xanax] 1 mg PO BID 10/23/18 Aripiprazole [Abilify Maintena] 400 mg IM QMONTH 10/23/18 Gabapentin [Neurontin] 900 mg PO TIDCM 10/23/18 Tamsulosin HCl [Flomax] 0.4 mg PO DAILY 10/23/18 Medications Added to Medication List This Visit Category Date Time Status 0.9% Normal Saline 1,000 ml Med 10/23/18 13:29 Active IV 100 mls/hr 0.9% Saline Lock Med 10/23/18 14:20 Active 10 - 40 ml IV UD PRN ALPRAZolam [Xanax] Med 10/23/18 22:00 Active 1 mg PO BID Acetaminophen [Tylenol] Med 10/23/18 13:29 Active 650 mg PO Q6H PRN PRN Amlodipine [Norvasc] Med 10/24/18 10:00 Active 10 mg PO DAILY Bisacodyl [Dulcolax] Med 10/23/18 13:29 Active 10 mg RECTAL DAILY PRN PRN Docusate Sodium [Colace] Med 10/23/18 22:00 Active 200 mg PO BID Enoxaparin [Lovenox] Med 10/24/18 00:00 Active 90 mg SC Q12 Gabapentin [Neurontin] Med 10/23/18 17:00 Active 300 mg PO TIDCM Gabapentin [Neurontin] Med 10/23/18 17:00 Active 600 mg PO TIDCM Lisinopril [Zestril] Med 10/24/18 10:00 Active 20 mg PO DAILY Melatonin Med 10/23/18 13:29 Active 3 mg PO QHS PRN PRN Ondansetron [Zofran] Med 10/23/18 13:29 Active 4 mg IV Q8H PRN PRN Oxycodone [Oxyir] Med 10/23/18 13:29 Active 5 mg PO Q4H PRN PRN Paliperidone [Invega] Med 10/23/18 22:00 Active 9 mg PO QHS Polyethylene Glycol 3350 [Miralax] Med 10/24/18 10:00 Active 17 gm PO DAILY Tamsulosin HCl [Flomax] Med 10/24/18 08:30 Active 0.4 mg PO DAILY@0830 Warfarin [Coumadin (PBKC)] Med 10/23/18 17:00 Active 5 mg PO DAILY@1700 hydroCHLOROthiazide Med 10/24/18 10:00 Active 12.5 mg PO DAILY morphine Inj Med 10/23/18 13:29 Active 2 mg IV Q3H PRN PRN Primary Care Provider: Pito Walker MD Referring Provider: - Problem List (1) VTE (venous thromboembolism) Status: Chronic (2) Chest pain Status: Resolved Qualifiers: Chest pain type: other chest pain
[2018-10-23] MEDS: Gabapentin 300 MG Capsule PO (17:07)
[2018-10-23] MEDS: Gabapentin 600 MG Tablet PO (17:07)
[2018-10-23] MEDS: 0.9% NaCl Peripheral Flush Adult/Peds IV (17:09)
[2018-10-23 17:10] VITALS: BP 137/89; PULSE 63; RESP 16; TEMP 36.7; O2SAT 100
[2018-10-23 20:41] VITALS: BP 124/82; PULSE 58; RESP 18; TEMP 37.2; O2SAT 98
[2018-10-23] MEDS: ALPRAZolam 0.5 MG Tablet 1 MG PO (22:00)
[2018-10-23] MEDS: Docusate Sodium 100 MG Capsule 200 MG PO (22:00)
[2018-10-23 22:20] LABS: Bedside Glucose 115 mg/dL (70-110)
[2018-10-24 02:45] VITALS: BP 118/77; PULSE 63; RESP 14; TEMP 36.3; O2SAT 100
[2018-10-24 06:10] LABS: Hematocrit 24.4 % (37-47); Hemoglobin 7.4 g/dl (12.0-15.0); Mean Corp Hgb Conc 30.3 g/gl (32-36); Mean Corpuscular Hgb 31.2 pg (27.0-32.0); Mean Platelet Vol. 8.7 fl (6.2-12.0); Platelet Count 296 K/mm3 (150-450); RBC Distribution Width CV 14.7 % (11.6-14.6); RBC Distribution Width SD 52.2 fl (35.1-43.9); Red Blood Count 2.37 M/mm3 (4.2-5.4); Scan Indicated on CBC? Y/N NO; White Blood Count 5.4 K/mm3 (4.4-11.0)
[2018-10-24 06:20] LABS: International Normalized Ratio 1.2; Prothrombin Time (Protime)PT. 15.1 SECONDS (11.7-14.9)
[2018-10-24 06:45] LABS: Anion Gap 6 (5-15); BUN 19 mg/dL (7-18); BUN/Creat Ratio 18.4 RATIO (10-20); Calcium,Total 8.1 mg/dL (8.5-10.1); Chloride 114 mmol/L (98-107); Creatinine, Serum 1.03 mg/dL (0.55-1.02); EST Glomerular Filtration Rate 60 mL/min (>60); Est Glom Filt Rate - Afr Amer 73 mL/min (>60); Estimated Creatinine Clearance 66.65 ml/min; Glucose 94 mg/dL (74-106); Potassium 3.8 mmol/L (3.5-5.1); Sodium Level 145 mmol/L (136-145); Thyroid Stim Hormone (TSH) 1.02 uIU/mL (0.358-3.74)
[2018-10-24 06:56] LABS: Bedside Glucose 108 mg/dL (70-110)
--- NOTE | 2018-10-24 07:20 | CT_ITS ---
STUDY: CTA CHEST REASON FOR EXAM: Female, 48 years old. Chest pain. DVT of the left lower extremity. RADIATION DOSAGE (If Supplied By Facility): CTDIvol = ( 16.33 ) mGy, DLP = ( 453.77 ) mGycm TECHNIQUE: The examination was performed with the intravenous administration of 75ml IV Isovue 300. Post-processing of the angiographic images was performed, with multiplanar reformation and 3D reconstruction. Individualized dose optimization techniques were used for this CT. COMPARISON: Comparison is made with prior study dated February 07, 2016. FINDINGS: Normal enhancement of the main pulmonary artery and right and left pulmonary arteries. Normal enhancement of the bilateral peripheral pulmonary arteries. There is no demonstrated pulmonary embolism. Normal thoracic aorta and visualized great vessels. There is no demonstrated aortic dissection. Normal heart and pericardium. Stable appearance of the cardiac defibrillator along the left lateral chest wall. Normal mediastinum. Normal hilar regions. Normal visualized trachea and bronchi. The lungs are well expanded. Mild degree of emphysematous changes worse in the upper lobes. Mild degree of increased markings at the lung bases suggest bibasilar atelectasis and/or early infiltrate slightly worse on the right side. Normal pleura. Normal chest wall structures. Normal osseous structures. Normal visualized upper abdomen. CT/CTA Chest W/WO Contrast IMPRESSION: No evidence of pulmonary embolus. Mild degree of emphysematous changes. Atelectasis and/or infiltrates at the lung bases. Electronically Signed: Kendell Lugo, at 8:52 EDT , Service support ,
--- NOTE | 2018-10-24 08:30 | PN_ITS ---
Patient Problems: Active and Suspected Problems Recurrent DVT on anticoagulant (Acute) Subjective: Patient has decreased left lower extremity edema, tightness and induration and pain. Discussed with the director case, she had prescription of Eliquis about 2 weeks ago which she did not fill it. Her Eliquis prescription cost about $8 per month. Vitals/I&O's: Vital Signs Temp Pulse Resp BP Pulse Ox 97.3 F L 63 14 118/77 100 10/24/18 02:45 10/24/18 02:45 10/24/18 02:45 10/24/18 02:45 10/24/18 02:45 Oxygen Delivery Method Room Air Weight: 198 lb 10.184 oz Body Mass Index (BMI) 29.7 Intake and Output for Last 24 Hours 10/22/18 10/23/18 10/24/18 23:59 23:59 23:59 Intake Total 703 / 703 1815 / 1815 Output Total 600 / 600 400 / 400 Balance 103 / 103 1415 / 1415 General: Alert, Oriented x3, Cooperative HEENT: Atraumatic, PERRLA, EOMI, Normocephalic Neck: Supple, No JVD, Negative Carotid Bruits Lungs: Normal air movement, No rhonchi, No wheeze, No rales, Diminished Cardiovascular: Regular rate, Regular Rhythm, Normal S1, Normal S2, No murmurs Abdomen: Bowel Sounds Present, Soft, Non Tender, Non-Distended Extremities: No edema, Capillary Refill Less than 3 Seconds Skin: No rashes, No breakdown Musculoskeletal: No Tenderness to Palpation of Joints or Extremities, Arthritic Changes, Tenderness - Left lower extremity tenderness present. Swelling and induration has improved., - Neurological: Cranial nerves II-XII grossly intact Psych/Mental Status: Normal Affect, Appropriate Laboratory Results 10/23/18 11:30: WBC 6.6, RBC 2.66 L, Hgb 8.3 L, Hct 26.8 L, MCV 100.8 H, MCH 31.2, MCHC 31.0 L, RDW 14.9 H, RDW Differential 54.7 H, Plt Count 332, MPV 8.9, Immature Gran % (Auto) 0.200, Neut % (Auto) 53.3, Lymph % (Auto) 34.0, Cass % (Auto) 10.6 H, Eos % (Auto) 1.4, Baso % (Auto) 0.5, Absolute Neuts (auto) 3.5, Absolute Lymphs (auto) 2.25, Total Counted Not Reportable 10/23/18 11:30: Sodium 143, Potassium 3.9, Chloride 111 H, Carbon Dioxide 25.0, Anion Gap 7, BUN 23 H, Creatinine 1.31 H, Estim Creat Clear Calc 50.52, Est GFR (MDRD) Af Amer 55 L, Est GFR (MDRD) Non-Af 46 L, BUN/Creatinine Ratio 17.6, Glucose 89, Calcium 8.6, Total Bilirubin 0.30, AST 14 L, ALT 15, Alkaline Phosphatase 70, Total Protein 7.2, Albumin 3.1 L, Globulin 4.1, Albumin/Globulin Ratio 0.8 L 10/23/18 11:44: PT 16.4 H, INR 1.3, APTT 33.5 10/23/18 15:12: Factor II DNA Analysis Pending 10/23/18 16:37: POC Glucose 106 10/23/18 21:53: POC Glucose 115 H 10/24/18 05:50: WBC 5.4, RBC 2.37 L, Hgb 7.4 L, Hct 24.4 L, MCV 103.0 H, MCH 31.2, MCHC 30.3 L, RDW 14.7 H, RDW Differential 52.2 H, Plt Count 296, MPV 8.7 10/24/18 05:50: PT 15.1 H, INR 1.2 10/24/18 05:50: Sodium 145, Potassium 3.8, Chloride 114 H, Carbon Dioxide 25.0, Anion Gap 6, BUN 19 H, Creatinine 1.03 H, Estim Creat Clear Calc 66.65, Est GFR (MDRD) Af Amer 73, Est GFR (MDRD) Non-Af 60, BUN/Creatinine Ratio 18.4, Glucose 94, Calcium 8.1 L, TSH 1.02 10/24/18 06:48: POC Glucose 108 Current Medications Acetaminophen (Tylenol) 650 mg PO Q6H PRN PRN PRN Reason: Mild Pain (scale 0-3)/T>100.7 Last Admin: 10/23/18 16:15 Dose: 650 mg Documented by: Alprazolam (Xanax) 1 mg PO BID [facility] Last Admin: 10/23/18 22:00 Dose: 1 mg Documented by: Amlodipine Besylate (Norvasc) 10 mg PO DAILY [facility] Bisacodyl (Dulcolax) 10 mg RECTAL DAILY PRN PRN PRN Reason: Constipation Docusate Sodium (Colace) 200 mg PO BID [facility] Last Admin: 10/23/18 22:00 Dose: 200 mg Documented by: Enoxaparin Sodium (Lovenox) 90 mg 1 mg/kg (90 mg) SC Q12 [facility] Last Admin: 10/23/18 23:22 Dose: 90 mg Documented by: Gabapentin (Neurontin) 600 mg PO TIDCM [facility] Last Admin: 10/23/18 17:07 Dose: 600 mg Documented by: Gabapentin (Neurontin) 300 mg PO TIDCM [facility] Last Admin: 10/23/18 17:07 Dose: 300 mg Documented by: Hydrochlorothiazide () 12.5 mg PO DAILY [facility] Sodium Chloride () 1,000 mls @ 100 mls/hr IV .Q10H [facility] Last Admin: 10/23/18 23:21 Dose: 100 mls/hr Documented by: Lisinopril (Zestril) 20 mg PO DAILY [facility] Melatonin (Melatonin) 3 mg PO QHS PRN PRN PRN Reason: INSOMNIA Morphine Sulfate () 2 mg IV Q3H PRN PRN PRN Reason: Severe pain (7-10/10) Nutritional Formula (Lactose Free) (Ensure Enlive) 120 ml PO 4X/DAY [facility] Last Admin: 10/23/18 21:59 Dose: 120 ml Documented by: Ondansetron HCl (Zofran) 4 mg IV Q8H PRN PRN PRN Reason: Nausea Oxycodone HCl (Oxyir) 5 mg PO Q4H PRN PRN PRN Reason: Moderate Pain (pain scale 4-5) Last Admin: 10/23/18 21:59 Dose: 5 mg Documented by: Paliperidone (Invega) 9 mg PO QHS [facility] Last Admin: 10/23/18 22:03 Dose: 9 mg Documented by: Polyethylene Glycol (Miralax) 17 gm PO DAILY [facility] Sodium Chloride () 10 - 40 ml IV UD PRN PRN Reason: SALINE FLUSH Last Admin: 10/23/18 17:09 Dose: 10 ml Documented by: Tamsulosin HCl (Flomax) 0.4 mg PO DAILY@0830 [facility] Warfarin Sodium (Coumadin (Pbkc)) 5 mg PO DAILY@1700 [facility] Last Admin: 10/23/18 17:06 Dose: 5 mg Documented by: Medical Necessity - Tobacco Use Smoking Status: Former smoker Assessment/Plan All Active Problems Recurrent DVT on anticoagulant (Acute) Chest pain (Resolved) Coronary artery disease (Ruled-out) Prolonged Q-T interval on ECG (Resolved) Acute deep vein thrombosis (DVT) of left lower extremity (Resolved) The patient is a 48 year old F who came to ED with left lower extremity swelling, redness and pain for about 3 to 4 weeks. Prior to that patient was seen in [place] ER about 5 days ago and she completed 5 days course of Keflex for presumed cellulitis. Due to the concern for worsening swelling, redness and pain she went to her PCP from there she came to ER. She denies fever or chills. She had fever chills about 10 days ago. She does not have any blister. She has history of DVT/PE since March 2016 for which she was admitted in March 2016 and was sent home on Eliquis. In ED, venous Doppler was done and was found positive of left lower extremity DVT. Venous Doppler shows acute DVT in mid to distal femoral vein, left popliteal vein, left peroneal vein 1. Left lower extremity recurrent DVT on oral anticoagulant: Patient is being admitted to [facility] floor. The patient was initially started on Lovenox 1 mg/kg body weight every 12 hourly and Coumadin but discontinued today. It is switched to Eliquis 10 mg twice daily. Continue on IV fluid normal saline at 75 mill per hour. Neonatal Intensive Care Nurse consult reviewed and appreciated. Neonatal Intensive Care Nurse consult Dr. Beyer for further opinion and recommendation. He advised prothrombin gene mutation and anticardiolipin IgM and IgG are pending.. Venous Doppler in in July 2017 in [facility] reported as chronic DVT in the left distal external iliac vein, common femoral vein. Collaterals noted at the level of distal external iliac vein. Chronic DVT and femoral vein at the proximal thigh level with collaterals with partial venous recanalization. CTPA was done and is negative for PE. Mild degree of emphysematous changes and atelectasis at the lung bases. 2. Acute anemia, microcytic in nature with baseline chronic anemia possible sec ondary to anticoagulant: MCV 103. H&H dropped to 7.4 from 8.3. As mentioned above, Lovenox switched to Eliquis. Monitor H&H every 8 hourly. Anemia work-up including iron studies, B12 and reticulocyte ordered. Recent left lower extremity cellulitis completed 5 days of Keflex: There is no fever or chills. No tachycardia or leukocytosis. I think patient has already been treated with antibiotic and does not need further antibiotic she does not have signs and symptoms of acute cellulitis. 3. Coronary artery disease, history of cardiac arrest with ventricular fibrillation status post AICD, prolonged QT on EKG: Home medications continued. Currently patient does not have chest pain or shortness of breath. EKG was done shows QTC 450 ms. Normal sinus rhythm at 63 bpm. Low voltage QRS complex. Patient is on monthly IM injection of aripiprazole. This is outpatient medication, approved by psychiatrist. 4. Chronic back pain with neuropathic pain with a schizophrenia: Patient saw pa in doctor in the past but did not follow-up because of financial issues. Laboratory Results 10/23/18 15:12: Factor II DNA Analysis Pending 10/23/18 16:37: POC Glucose 106 10/23/18 21:53: POC Glucose 115 H 10/24/18 05:50: WBC 5.4, RBC 2.37 L, Hgb 7.4 L, Hct 24.4 L, MCV 103.0 H, MCH 31.2, MCHC 30.3 L, RDW 14.7 H, RDW Differential 52.2 H, Plt Count 296, MPV 8.7 10/24/18 05:50: PT 15.1 H, INR 1.2 10/24/18 05:50: Sodium 145, Potassium 3.8, Chloride 114 H, Carbon Dioxide 25.0, Anion Gap 6, BUN 19 H, Creatinine 1.03 H, Estim Creat Clear Calc 66.65, Est GFR (MDRD) Af Amer 73, Est GFR (MDRD) Non-Af 60, BUN/Creatinine Ratio 18.4, Glucose 94, Calcium 8.1 L, TSH 1.02 10/24/18 06:48: POC Glucose 108 10/24/18 11:23: POC Glucose 91 Laboratory Results 10/23/18 11:30: WBC 6.6, RBC 2.66 L, Hgb 8.3 L, Hct 26.8 L, MCV 100.8 H, MCH 31.2, MCHC 31.0 L, RDW 14.9 H, RDW Differential 54.7 H, Plt Count 332, MPV 8.9, Immature Gran % (Auto) 0.200, Neut % (Auto) 53.3, Lymph % (Auto) 34.0, Cass % (Auto) 10.6 H, Eos % (Auto) 1.4, Baso % (Auto) 0.5, Absolute Neuts (auto) 3.5, Absolute Lymphs (auto) 2.25, Total Counted Not Reportable Clinical Impression(s) from Imaging Studies Chest CTA 10/24/18 07:20 IMPRESSION: No evidence of pulmonary embolus. Mild degree of emphysematous changes. Atelectasis and/or infiltrates at the lung bases. Code Visit Inpatient E&M: 00420 Subs Hosp L3
--- NOTE | 2018-10-24 08:30 | EKG12_ITS ---
Test Reason : Blood Pressure : / mmHG Vent. Rate : 063 BPM Atrial Rate : 063 BPM P-R Int : 172 ms QRS Dur : 076 ms QT Int : 440 ms P-R-T Axes : 055 005 033 degrees QTc Int : 450 ms Normal sinus rhythm Low voltage QRS Borderline ECG Confirmed by VANESSA MUNIZ, GWENDOLYN ([id number]), editor house organ JEANNIE JEFFREY ([id number]) on 10/30/2018 1:56:24 PM Referred By: NERY Confirmed By:GWENDOLYN MENDEZ MD
[2018-10-24 08:45] VITALS: BP 120/90; PULSE 64; RESP 18; TEMP 36.9; O2SAT 100
[2018-10-24] MEDS: ALPRAZolam 0.5 MG Tablet 1 MG PO ×2 (08:59→21:24)
[2018-10-24] MEDS: oxyCODONE 5 MG Tablet PO ×2 (08:59→23:39)
[2018-10-24] MEDS: Lisinopril 20 MG Tablet PO (09:00)
[2018-10-24] MEDS: amLODIPine 10 MG Tablet PO (09:00)
[2018-10-24] MEDS: Gabapentin 600 MG Tablet PO ×3 (09:00→17:44)
[2018-10-24] MEDS: Docusate Sodium 100 MG Capsule 200 MG PO ×2 (09:00→21:24)
[2018-10-24] MEDS: Tamsulosin HCl 0.4 MG Capsule PO (09:00)
[2018-10-24] MEDS: Polyethylene Glycol 3350 17 GM PACKET PO (09:01)
[2018-10-24] MEDS: Gabapentin 300 MG Capsule PO ×3 (09:01→17:44)
[2018-10-24] MEDS: Enoxaparin 100 MG/ML Syringe 90 MG SC (09:01)
[2018-10-24] MEDS: hydroCHLOROthiazide 12.5mg 12.5 MG PO (09:01)
[2018-10-24] MEDS: 0.9% Normal Saline 1,000 ML 100 ML IV ×2 (10:01→19:49)
[2018-10-24 11:32] VITALS: O2SAT 94
--- NOTE | 2018-10-24 11:39 | CASEMGMT ---
VASQUEZ MASON updated by hospitalist that patient will need to be on Eliquis on discharge. VASQUEZ MASON in to speak to patient, who states that she has a prescription and preferred pharmacy [facility]. VASQUEZ MASON called [facility] and patient has not filled prescriptions since 2017. VASQUEZ MASON back in to discuss Eliquis prescription. Patient states that [facility] [place]. VASQUEZ MASON called [facility] and confirmed that patient has an active Eliquis prescription written on October 02, 2018 by JUSTA Evans. Cost for Eliquis is $8.50. VASQUEZ MASON updated hospitalist and patient.
[2018-10-24 11:40] LABS: Bedside Glucose 91 mg/dL (70-110)
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
[2018-10-24 14:01] VITALS: BP 105/71; PULSE 51; RESP 16; TEMP 36.9; O2SAT 98
--- NOTE | 2018-10-24 14:54 | CHAPLAIN ---
Type of Pastoral Visit _x__ Initial Visit ___ Follow-up Visit ___ On-call Visit ___ General Patient Visit ___ Spiritual Assessment ___ Family Conference ___ Bereavement ___ Rapid Response ___ Code Blue ___ Other (describe below) Pastoral Care Referral From _x__ Patient ___ Family ___ Nurse ___ Physician ___ Liability Analyst ___ Assembly Member ___ Other (describe below) Sacrament/Intervention ___ Active listening ___ Anointing ___ Advent ___ Bereavement ___ Communion ___ Valerie exploration ___ ___ Life review _x__ Prayer ___ Reconciliation ___ Sacrament of Sick _x__ Supportive presence ___ Wedding ___ Other (describe below) Pastoral Comments
--- NOTE | 2018-10-24 16:27 | CASEMGMT ---
Social Work Note SW received referral that pt would like advanced directives information. SW to follow up with pt tomorrow. Michelle Mckinley INDIRECT SALES EXEC, GRAVE CLEANER
[2018-10-24 16:40] LABS: Bedside Glucose 91 mg/dL (70-110)
[2018-10-24 16:58] LABS: Ferritin 109 ng/mL (8-252); Iron 38 ug/dL (50-170); Iron Binding Capacity,Total 170 ug/dL (250-450); PERCENT IRON SATURATION 22.4 % (15.0-55.0)
[2018-10-24 17:00] LABS: Hematocrit 25.7 % (37-47); Hemoglobin 8.1 g/dl (12.0-15.0); Immature Platelet Fraction 1.6 % (1.0-7.9); RET-HE 31.1 pg (30-35); Reticulocyte Count 1.45 % (0.5-1.5)
[2018-10-24 17:43] LABS: Vitamin B12 155 pg/mL (211-911)
[2018-10-24 19:30] VITALS: BP 104/72; PULSE 62; RESP 14; TEMP 36.7; O2SAT 100
[2018-10-24] MEDS: Acetaminophen 325 MG Tablet 650 MG PO (19:52)
[2018-10-24] MEDS: MELATONIN 3 MG TABLET PO (21:24)
[2018-10-24] MEDS: APIXABAN 5 MG TABLET 10 MG PO (21:24)
[2018-10-24 21:46] LABS: Bedside Glucose 109 mg/dL (70-110)
[2018-10-25 00:54] LABS: Hematocrit 23.8 % (37-47); Hemoglobin 7.4 g/dl (12.0-15.0)
[2018-10-25 01:24] VITALS: BP 112/67; PULSE 60; RESP 14; TEMP 36.8; O2SAT 97
[2018-10-25] MEDS: 0.9% Normal Saline 1,000 ML 100 ML IV (05:54)
[2018-10-25 06:08] LABS: International Normalized Ratio 1.2; Prothrombin Time (Protime)PT. 14.8 SECONDS (11.7-14.9)
[2018-10-25 06:09] LABS: Absolute Lymphocyte Count 2.09 X10^3/ul (0.83-4.51); Absolute Neutrophil Count 2.3 X10^3/uL (2.0-7.7); Basophil# 0.02 X10^3/uL; Basophil% 0.4 % (0-1); Eosinophil# 0.13 X10^3/uL; Eosinophils% 2.6 % (0-5); Lymphocyte # 2.09 X10^3/ul (4.0); Lymphocyte % 42.4 % (19-41); Mean Corp Hgb Conc 29.6 g/gl (32-36); Mean Corpuscular Volume 104.7 fL (81-99); Mean Platelet Vol. 9.6 fl (6.2-12.0); Monocyte# 0.38 X10^3/uL; Monocyte% 7.7 % (0-10); Neutrophil # 2.31 X10^3/uL (2.7-7.7); Neutrophil % 46.9 % (47-70); POSITIVE COUNT NO; POSITIVE DIFFERENTIAL NO; POSITIVE MORPHOLOGY NO; Platelet Count 326 K/mm3 (150-450); RBC Distribution Width CV 14.8 % (11.6-14.6); RBC Distribution Width SD 54.2 fl (35.1-43.9); Red Blood Count 2.58 M/mm3 (4.2-5.4); White Blood Count 4.9 K/mm3 (4.4-11.0)
[2018-10-25 06:17] LABS: Anion Gap 9 (5-15); BUN 21 mg/dL (7-18); BUN/Creat Ratio 18.3 RATIO (10-20); Calcium,Total 8.2 mg/dL (8.5-10.1); Chloride 109 mmol/L (98-107); Creatinine, Serum 1.15 mg/dL (0.55-1.02); EST Glomerular Filtration Rate 53 mL/min (>60); Est Glom Filt Rate - Afr Amer 64 mL/min (>60); Estimated Creatinine Clearance 59.69 ml/min; Glucose 87 mg/dL (74-106); Potassium 3.8 mmol/L (3.5-5.1); Sodium Level 143 mmol/L (136-145)
[2018-10-25 06:41] VITALS: BP 120/69; PULSE 62; RESP 14; TEMP 36.6; O2SAT 100
[2018-10-25 06:45] LABS: Bedside Glucose 119 mg/dL (70-110)
[2018-10-25 07:20] VITALS: O2SAT 99
[2018-10-25] MEDS: Gabapentin 300 MG Capsule PO ×2 (08:20→11:48)
[2018-10-25] MEDS: Docusate Sodium 100 MG Capsule 200 MG PO (08:20)
[2018-10-25] MEDS: Gabapentin 600 MG Tablet PO ×2 (08:20→11:48)
[2018-10-25] MEDS: APIXABAN 5 MG TABLET 10 MG PO (08:20)
[2018-10-25] MEDS: Tamsulosin HCl 0.4 MG Capsule PO (08:20)
[2018-10-25] MEDS: Lisinopril 20 MG Tablet PO (08:21)
[2018-10-25] MEDS: amLODIPine 10 MG Tablet PO (08:21)
[2018-10-25] MEDS: Polyethylene Glycol 3350 17 GM PACKET PO (08:21)
[2018-10-25] MEDS: ALPRAZolam 0.5 MG Tablet 1 MG PO (08:24)
--- NOTE | 2018-10-25 09:54 | CASEMGMT ---
VASQUEZ MASON Note: Intro role of CM to patient and [place] form explained re: Observation status for treatment of DVT. Explained hospitalization will be paid per? insurance policy for Outpatient billing?and condition will continue to be evaluated for Inpt necessity. Also let pt know that [facility] sends paper in the billing packet with their phone number if questions arise. Discussed Pharmacy section of [place] form and self administered medication guideline.? Pt verbalizes understanding and does not have further questions. Form signed and placed in chart, copy to pt. BRAYDEN OVALLE BSN CM
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
[2018-10-25] MEDS: Cyanocobalamin 500 MCG Tablet 1000 MCG PO (10:36)
[2018-10-25] MEDS: Folic Acid 1 MG Tablet PO (10:36)
[2018-10-25 10:40] VITALS: BP 115/71; PULSE 71; RESP 16; TEMP 36.8; O2SAT 99
[2018-10-25] MEDS: oxyCODONE 5 MG Tablet PO (10:41)
--- NOTE | 2018-10-25 11:16 | PCM.DC ---
- Discharge Diagnoses Current Active Problems: Current Active and Chronic Problems Recurrent DVT on anticoagulant (Acute) You will use the following diet at home:: Cardiac Your food should be the consistency of: Regular Discharge Activity: May Not Drive Weight Bearing Status: Weight bearing as tolerated Call your doctor if you observe: Fever of 101 or Higher, Numbness or Tingling, Change in Color, Inability to urinate, Inability to have a bowel movement, Shortness of breath, Dizziness, Fainting spells, Swelling in the ankles, Chest pain, Increased palpitations (irregular heartbeat) Allergies/Adverse Reactions: Allergies Penicillins Allergy (Verified 10/23/18 10:42) Swelling Medications to take at Discharge Amlodipine [Norvasc] 10 mg PO DAILY 02/18/16 Acetaminophen [Tylenol] 325 mg PO Q4H PRN PRN 09/19/16 Lisinopril [Zestril] 20 mg PO DAILY 09/19/16 Paliperidone [Paliperidone ER] 9 mg PO QHS 09/06/17 Hydrochlorothiazide [Hctz] 12.5 mg PO DAILY #30 tablet 09/07/17 ALPRAZolam [Xanax] 1 mg PO BID 10/23/18 Aripiprazole [Abilify Maintena] 400 mg IM QMONTH 10/23/18 Gabapentin [Neurontin] 900 mg PO TIDCM 10/23/18 Tamsulosin HCl [Flomax] 0.4 mg PO DAILY 10/23/18 Apixaban [Eliquis] 10 mg PO BID #0 tablet 10/25/18 Cyanocobalamin [Vitamin B12] 1,000 mcg PO DAILY@0800 #30 tab 10/25/18 Folic Acid 1 mg PO DAILY@0800 #30 tab 10/25/18 The following prescriptions were given: Folic Acid 1 mg PO DAILY@0800 #30 tab Transmission Status: Pending to [facility] #30 Cyanocobalamin [Vitamin B12] 1,000 mcg PO DAILY@0800 #30 tab Transmission Status: Pending to [facility] #30 Primary Care Physician: Pito Walker MD [Primary Care Provider] - Test Results: Test results from this visit will be discussed in further detail at your follow-up appointment, if applicable. Please Follow Up With: Pito Walker MD his PASTE MAKER When: Tuesday Please Follow Up With: Bay Beyer MD When: for recurrent DVT/PE in 1-2 week
--- NOTE | 2018-10-25 11:41 | PCM.DC.SUM ---
Discharge Date and Diagnosis Date of Admission: 10/23/18 Date of Discharge: 10/25/18 - Primary Discharge Diagnosis Active and Suspected Problems Recurrent DVT on anticoagulant (Acute) - Secondary Discharge Diagnosis Chronic Problems Neuropathy (Chronic) Neuropathic pain (Chronic) Cardiac arrest with ventricular fibrillation (Chronic) VTE (venous thromboembolism) (Chronic) Status post implantation of automatic cardioverter/defibrillator (AICD) (Chronic) Hospital Course and Treatment Operations: None Summary of Care Provided: T [] The patient is a 48 year old F who came to ED with left lower extremity swelling, redness and pain for about 3 to 4 weeks. Prior to that patient was seen in [place] ER about 5 days ago and she completed 5 days course of Keflex for presumed cellulitis. Due to the concern for worsening swelling, redness and pain she went to her PCP from there she came to ER. She denies fever or chills. She had fever chills about 10 days ago. She does not have any blister. She has history of DVT/PE since March 2016 for which she was admitted in March 2016 and was sent home on Eliquis. In ED, venous Doppler was done and was found positive of left lower extremity DVT. Venous Doppler shows acute DVT in mid to distal femoral vein, left popliteal vein, left peroneal vein 1. Left lower extremity recurrent DVT on oral anticoagulant: Patient is being admitted to [facility] floor. The patient was initially started on Lovenox 1 mg/kg body weight every 12 hourly and Coumadin but discontinued today. It is switched to Eliquis 10 mg twice daily. Continue on IV fluid normal saline at 75 mill per hour. Auditor In Charge consult reviewed and appreciated. Venous Doppler in in July 2017 in [facility] reported as chronic DVT in the left distal external iliac vein, common femoral vein. Collaterals noted at the level of distal external iliac vein. Chronic DVT and femoral vein at the proximal thigh level with collaterals with partial venous recanalization. CTPA was done and is negative for PE. Mild degree of emphysematous changes and atelectasis at the lung bases. Patient is discharged on Eliquis 10 mg twice daily. Patient Eliquis prescription will cost about $8 as per case work aide, Michelle Dickinson. Patient was advised to get regular prescription for Eliquis and is strongly advocated for compliance. Follow-up with environmental protection economist, Dr. Beyer in 2 weeks 2. Acute anemia, macrocytic in nature with baseline chronic anemia, secondary to vitamin B12/cyanocobalamin deficiency and secondary to anticoagulant: MCV 103. H&H dropped to 7.4 from 8.3. As mentioned above, Lovenox switched to Eliquis. H&H improved to 8/27. Macrocytic picture on peripheral blood smear. B12 is low 155 and replaced. Iron profile shows 38, iron saturation normal 22%, ferritin 109, TIBC low 170. Folate 6.8. Patient was also given iron IV infusion. Prescription given for ferrous sulfate. Recent left lower extremity cellulitis completed 5 days of Keflex: Resolved. There is no fever or chills. No tachycardia or leukocytosis. I think patient has already been treated with antibiotic and does not need further antibiotic she does not have signs and symptoms of acute cellulitis. 3. Coronary artery disease, history of cardiac arrest with ventricular fibrillation status post AICD, prolonged QT on EKG: Home medications continued. Currently patient does not have chest pain or shortness of breath. EKG was done shows QTC 450 ms. Normal sinus rhythm at 63 bpm. Low voltage QRS complex. 4. Chronic back pain with neuropathic pain with a schizophrenia: Patient saw pain doctor in the past but did not follow-up because of financial issues. Discharge medication reconciliation done. Discharge follow-up instructions completed. Discharge process discussed with the patient and all questions were answered to patient's satisfaction. Patient is on monthly IM injection of aripiprazole. The patient was advised to follow-up with psychiatrist and get monthly injection. Total time spent, exact 35 minutes on discharge meds reconciliation, examination, review of imaging and blood test and discussion with the patient on follow-up instructions. Laboratory Results 10/24/18 05:50: Iron 38 L, TIBC 170 L, Iron Saturation 22.4, Ferritin 109, Folate 6.80 10/24/18 16:20: POC Glucose 91 10/24/18 16:36: Hgb 8.1 L, Hct 25.7 L, Immature Plt Fraction 1.6, Retic Count 1.45, Immature Retic Fraction 12.70, Retic Hgb Equivalent 31.1 10/24/18 16:36: Vitamin B12 155 L 10/24/18 21:17: POC Glucose 109 10/25/18 00:31: Hgb 7.4 L, Hct 23.8 L 10/25/18 05:32: PT 14.8, INR 1.2 10/25/18 05:32: WBC 4.9, RBC 2.58 L, Hgb 8.0 L, Hct 27.0 L, MCV 104.7 H, MCH 31.0, MCHC 29.6 L, RDW 14.8 H, RDW Differential 54.2 H, Plt Count 326, MPV 9.6, Immature Gran % (Auto) 0.000, Neut % (Auto) 46.9 L, Lymph % (Auto) 42.4 H, Hickory % (Auto) 7.7, Eos % (Auto) 2.6, Baso % (Auto) 0.4, Absolute Neuts (auto) 2.3, Absolute Lymphs (auto) 2.09, Total Counted Not Reportable 10/25/18 05:32: Sodium 143, Potassium 3.8, Chloride 109 H, Carbon Dioxide 25.0, Anion Gap 9, BUN 21 H, Creatinine 1.15 H, Estim Creat Clear Calc 59.69, Est GFR (MDRD) Af Amer 64, Est GFR (MDRD) Non-Af 53 L, BUN/Creatinine Ratio 18.3, Glucose 87, Calcium 8.2 L 10/25/18 06:37: POC Glucose 119 H Subjective: Seen and examined. Patient left lower extremity pain and swelling has much improved. Redness is improved. Objective: General: Alert, Oriented x3, Cooperative HEENT: Atraumatic, PERRLA, EOMI, Normocephalic Neck: Supple, No JVD, Negative Carotid Bruits Lungs: Normal air movement, No rhonchi, No wheeze, No rales, Diminished Cardiovascular: Regular rate, Regular Rhythm, Normal S1, Normal S2, No murmurs Abdomen: Bowel Sounds Present, Soft, Non Tender, Non-Distended Extremities: No edema, Capillary Refill Less than 3 Seconds Skin: No rashes, No breakdown Musculoskeletal: No Tenderness to Palpation of Joints or Extremities, Arthritic Changes, Left lower extremity tenderness, swelling and induration has improved. Neurological: Cranial nerves II-XII grossly intact Psych/Mental Status: Normal Affect, Appropriate - Physical Exam Vital Signs Temp Pulse Resp BP Pulse Ox 97.8 F 62 14 120/69 99 10/25/18 06:41 10/25/18 06:41 10/25/18 06:41 10/25/18 06:41 10/25/18 07:20 Oxygen Delivery Method Room Air Weight: 198 lb 10.184 oz Body Mass Index (BMI) 29.7 Intake and Output for Last 24 Hours 10/23/18 10/24/18 10/25/18 23:59 23:59 23:59 Intake Total 703 / 703 4508 / 4508 1108 / 1108 Output Total 600 / 600 2100 / 2100 650 / 650 Balance 103 / 103 2408 / 2408 458 / 458 Laboratory Tests Past 24 Hrs 10/24/18 10/24/18 10/24/18 05:50 16:36 16:36 WBC RBC Hgb 8.1 L Hct 25.7 L MCV MCH MCHC RDW RDW Differential Plt Count MPV Immature Gran % (Auto) Neut % (Auto) Lymph % (Auto) Hickory % (Auto) Eos % (Auto) Baso % (Auto) Absolute Neuts (auto) Absolute Lymphs (auto) Total Counted Immature Plt Fraction 1.6 Retic Count 1.45 Immature Retic Fraction 12.70 Retic Hgb Equivalent 31.1 PT INR Sodium Potassium Chloride Carbon Dioxide Anion Gap BUN Creatinine Estim Creat Clear Calc Est GFR (MDRD) Af Amer Est GFR (MDRD) Non-Af BUN/Creatinine Ratio Glucose Calcium Iron 38 L TIBC 170 L Iron Saturation 22.4 Ferritin 109 Vitamin B12 155 L Folate 6.80 10/25/18 10/25/18 10/25/18 00:31 05:32 05:32 WBC 4.9 RBC 2.58 L Hgb 7.4 L 8.0 L Hct 23.8 L 27.0 L MCV 104.7 H MCH 31.0 MCHC 29.6 L RDW 14.8 H RDW Differential 54.2 H Plt Count 326 MPV 9.6 Immature Gran % (Auto) 0.000 Neut % (Auto) 46.9 L Lymph % (Auto) 42.4 H Hickory % (Auto) 7.7 Eos % (Auto) 2.6 Baso % (Auto) 0.4 Absolute Neuts (auto) 2.3 Absolute Lymphs (auto) 2.09 Total Counted Not Reportable Immature Plt Fraction Retic Count Immature Retic Fraction Retic Hgb Equivalent PT 14.8 INR 1.2 Sodium Potassium Chloride Carbon Dioxide Anion Gap BUN Creatinine Estim Creat Clear Calc Est GFR (MDRD) Af Amer Est GFR (MDRD) Non-Af BUN/Creatinine Ratio Glucose Calcium Iron TIBC Iron Saturation Ferritin Vitamin B12 Folate 10/25/18 05:32 WBC RBC Hgb Hct MCV MCH MCHC RDW RDW Differential Plt Count MPV Immature Gran % (Auto) Neut % (Auto) Lymph % (Auto) Hickory % (Auto) Eos % (Auto) Baso % (Auto) Absolute Neuts (auto) Absolute Lymphs (auto) Total Counted Immature Plt Fraction Retic Count Immature Retic Fraction Retic Hgb Equivalent PT INR Sodium 143 Potassium 3.8 Chloride 109 H Carbon Dioxide 25.0 Anion Gap 9 BUN 21 H Creatinine 1.15 H Estim Creat Clear Calc 59.69 Est GFR (MDRD) Af Amer 64 Est GFR (MDRD) Non-Af 53 L BUN/Creatinine Ratio 18.3 Glucose 87 Calcium 8.2 L Iron TIBC Iron Saturation Ferritin Vitamin B12 Folate POC Glucose 10/25/18 10/24/18 10/24/18 06:37 21:17 16:20 POC Glucose 119 H 109 91 Discharge Activity: May Not Drive Weight Bearing Status: Weight bearing as tolerated Call your doctor if you observe: Fever of 101 or Higher, Numbness or Tingling, Change in Color, Inability to urinate, Inability to have a bowel movement, Shortness of breath, Dizziness, Fainting spells, Swelling in the ankles, Chest pain, Increased palpitations (irregular heartbeat) Home Medications: Medications to take at Discharge Amlodipine [Norvasc] 10 mg PO DAILY 02/18/16 Acetaminophen [Tylenol] 325 mg PO Q4H PRN PRN 09/19/16 Lisinopril [Zestril] 20 mg PO DAILY 09/19/16 Paliperidone [Paliperidone ER] 9 mg PO QHS 09/06/17 Hydrochlorothiazide [Hctz] 12.5 mg PO DAILY #30 tablet 09/07/17 ALPRAZolam [Xanax] 1 mg PO BID 10/23/18 Aripiprazole [Abilify Maintena] 400 mg IM QMONTH 10/23/18 Gabapentin [Neurontin] 900 mg PO TIDCM 10/23/18 Tamsulosin HCl [Flomax] 0.4 mg PO DAILY 10/23/18 Apixaban [Eliquis] 10 mg PO BID #0 tab 10/25/18 Cyanocobalamin [Vitamin B12] 1,000 mcg PO DAILY@0800 #30 tab 10/25/18 Folic Acid 1 mg PO DAILY@0800 #30 tab 10/25/18 Following Prescrptions Were Given to Patient: Folic Acid 1 mg PO DAILY@0800 #30 tab Transmission Status: Received by [facility] #30 Cyanocobalamin [Vitamin B12] 1,000 mcg PO DAILY@0800 #30 tab Transmission Status: Received by [facility] #30 Primary Care Physician: Pito Walker MD [Primary Care Provider] - Please Follow Up With: Pito Walker MD his FABRICS AND MATERIAL CUTTER When: Tuesday Please Follow Up With: Bay Beyer MD When: for recurrent DVT/PE in 1-2 week Medical Necessity - Tobacco Use Smoking Status: Former smoker Meaningful Use Info Meaningful Use Diagnoses (Choose all that apply): None applicable Code Visit Inpatient E&M: 82610 Disch Hosp
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
== END 2018-10-25 12:30 | disposition home or self-care (01) ==
LOC: ED 12:12 → MS3 12:21
PROVIDERS: Admitting Provider Internal Medicine; Emergency Provider Emergency Medicine; Family Provider Family Medicine; PCP Family Medicine; Visit Provider Internal Medicine
DX: M79.89 Other specified soft tissue disorders (principal); I82.432 Acute embolism and thrombosis of left popliteal vein; I82.890 Acute embolism and thrombosis of other specified veins; I82.412 Acute embolism and thrombosis of left femoral vein; I49.01 Ventricular fibrillation; I45.81 Long QT syndrome; I25.10 Atherosclerotic heart disease of native coronary artery without angina pectoris; F32.9 Major depressive disorder, single episode, unspecified; F20.9 Schizophrenia, unspecified; F41.9 Anxiety disorder, unspecified; G62.9 Polyneuropathy, unspecified; G89.29 Other chronic pain; D68.52 Prothrombin gene mutation; R07.89 Other chest pain; D53.9 Nutritional anemia, unspecified; D51.9 Vitamin B12 deficiency anemia, unspecified; D50.8 Other iron deficiency anemias; L03.116 Cellulitis of left lower limb; Z79.899 Other long term (current) drug therapy; Z86.718 Personal history of other venous thrombosis and embolism; Z86.74 Personal history of sudden cardiac arrest; Z79.01 Long term (current) use of anticoagulants; Z95.810 Presence of automatic (implantable) cardiac defibrillator; Z87.891 Personal history of nicotine dependence
CPT/HCPCS: 36415; 71275; 80048; 80053; 81240; 82607; 82728; 82746; 82962; 83540; 83550; 84443; 85014; 85018; 85025; 85027; 85045; 85610; 85730; 93005; 93971; 96361; 96365; 96372; 97162; 97802; 99218; 99285; 99406; J1756; J7030; J7040; Q9967; A4216; G0378

== ENCOUNTER 2019-08-10 02:53 | Emergency (ER) | payer MEDICARE, SELFPAY ==
[2019-08-10 02:53] VITALS: BP 171/114; PULSE 80; RESP 16; TEMP 36.7; O2SAT 100; BMI 31.7
--- NOTE | 2019-08-10 03:13 | ED.VISSUMM ---
- ER Visit Summary Date of Service: 08/10/19 Chief Complaint: Abdominal pain History of Present Illness: The patient is a 49 F who presents with abdominal pain that began today. Patient states the pain is over her lower abdomen. Patient describes the pain is sharp. Patient states the pain is been improved with Tylenol. Patient states nothing makes the pain worse. Patient does admit to some nausea and vomiting. Patient denies any hematemesis or coffee-ground emesis. Patient denies any diarrhea, melena, or hematochezia. Patient denies any dysuria or hematuria. Patient states she is currently being treated for urinary tract infection with Keflex. Patient denies any abnormal vaginal bleeding or discharge. Physical Examination: Vital signs are stable except for an elevated blood pressure of 171/114. Patient is afebrile. Patient is in no acute distress. Oral mucosa is pink and moist. Neck is supple. Trachea is midline. There is no JVD. Heart was regular rate and rhythm. Lungs are clear and equal bilaterally. Abdomen is soft. Bowel sounds are normal. There is mild diffuse tenderness. There is no rebound or guarding noted. Cranial nerves II through XII are intact. There are no focal motor or sensory deficits noted. Extremities are intact. There is no calf tenderness or edema. Test Results: CBC and comprehensive metabolic profile were obtained and were essentially within normal limits. Creatinine was slightly elevated at 1.42 but this is consistent with prior results. Urinalysis does not show any evidence of urinary tract infection. Emergency Department Course and Treatment: Patient was given IV fluids here. Patient was feeling better on reevaluation. Patient was instructed to continue Tylenol as needed for pain. Patient was instructed to finish her antibiotic as prescribed. Patient was instructed to follow-up with her primary care physician in 5 to 7 days. Patient understood and was agreeable with the plan. All questions were answered. Disposition: Discharge home Impression: Abdominal pain This note was generated with [employer] dictation software. It may contain incorrect words, spelling, and punctuation that were not noted in review of the chart prior to signing ED Disposition - Plan for ED Patient: Disposition: Home or Assisted Living Diagnosis: Abdominal pain Instructions: ED Abdominal Pain Unkn Cause Fem Referrals: Pito Walker MD [Primary Care Provider] - 5-7 Days
[2019-08-10 03:21] LABS: Mucous, Urine 0 SEEN /hpf (<or=2+)
[2019-08-10 03:22] LABS: Color, Urine Yellow (Yellow); Glucose, Dipstick 50 mg/dl (Normal); Ketone-Dipstick 5 mg/dl (Negative); Leukocyte Esterase-Dipstick 25 /ul (Negative); Nitrite-Dipstick Negative (Negative); Occult Blood-Urine 150 /ul (Negative); Protein-Dipstick 100 mg/dl (Negative); Urine Bilirubin Dipstick Negative (Negative); Urine Clarity Sl. Cloudy (Clear); Urine Urobilinogen Normal (Normal)
[2019-08-10] MEDS: 0.9% Normal Saline 1,000 ML 1000 ML IV (03:28)
[2019-08-10 03:44] LABS: Bacteria 2+ /hpf (None Seen); Red Blood Cells-Urine 0-5 SEEN /hpf (0-5); Squamous Epithelial Cells - UA 5-10 SEEN /hpf (5-10); White Blood Cells 0-5 SEEN /hpf (0-5)
[2019-08-10 03:53] LABS: ALB/GLOB Ratio 0.9 RATIO (0.9-2.4); AST(SGOT) 14 U/L (15-37); Alanine Aminotransfer ALT/SGPT 17 U/L (13-56); Albumin, Serum 3.6 g/dL (3.2-5.0); Alkaline Phosphatase 72 U/L (45-117); Anion Gap 7 (5-15); BUN 28 mg/dL (7-18); BUN/Creat Ratio 19.7 RATIO (10-20); Calcium,Total 8.8 mg/dL (8.5-10.1); Chloride 106 mmol/L (98-107); Creatinine, Serum 1.42 mg/dL (0.55-1.02); EST Glomerular Filtration Rate 42 mL/min (>60); Est Glom Filt Rate - Afr Amer 50 mL/min (>60); Estimated Creatinine Clearance 47.81 ml/min; Glucose 92 mg/dL (74-106); Lipase 156 U/L (73-393); Potassium 3.3 mmol/L (3.5-5.1); Protein, Total 7.6 g/dL (6.4-8.2); Sodium Level 142 mmol/L (136-145)
[2019-08-10 04:32] LABS: Absolute Lymphocyte Count 2.17 X10^3/uL (0.83-4.51); Absolute Neutrophil Count 3.3 X10^3/uL (2.0-7.7); Basophil# 0.04 X10^3/uL; Basophil% 0.6 % (0-1); Eosinophil# 0.09 X10^3/uL; Eosinophils% 1.4 % (0-5); Hematocrit 35.6 % (37-47); Hemoglobin 11.3 g/dL (12.0-15.0); Lymphocyte # 2.17 X10^3/ul (4.0); Lymphocyte % 34.6 % (19-41); Mean Corp Hgb Conc 31.7 g/dL (32-36); Mean Corpuscular Hgb 31.7 pg (27.0-32.0); Mean Corpuscular Volume 99.7 fL (81-99); Mean Platelet Vol. 9.8 fl (6.2-12.0); Monocyte# 0.63 X10^3/uL; NRBC Flagged by Analyzer 0 % (0-5); Neutrophil # 3.34 X10^3/uL (2.7-7.7); Neutrophil % 53.2 % (47-70); Platelet Count 216 K/mm3 (150-450); RBC Distribution Width SD 47.9 fl (35.1-43.9); Red Blood Count 3.57 M/mm3 (4.2-5.4); White Blood Count 6.3 K/mm3 (4.4-11.0)
[2019-08-10 04:43] VITALS: BP 164/80; PULSE 79; RESP 18
[2019-08-10 05:00] VITALS: BP 162/87; PULSE 79; RESP 18; O2SAT 98
== END 2019-08-10 05:01 | disposition home or self-care (01) ==
PROVIDERS: Emergency Provider Emergency Medicine; PCP Family Medicine
DX: R10.30 Lower abdominal pain, unspecified (principal); R11.2 Nausea with vomiting, unspecified; E66.9 Obesity, unspecified; I10 Essential (primary) hypertension; J44.9 Chronic obstructive pulmonary disease, unspecified; M79.7 Fibromyalgia; F41.9 Anxiety disorder, unspecified; G62.9 Polyneuropathy, unspecified; Z79.899 Other long term (current) drug therapy
CPT/HCPCS: 80053; 81001; 83690; 85025; 87086; 87088; 96360; 96361; 99284; J7030

== ENCOUNTER 2019-08-13 19:57 | Emergency (ER) | payer MEDICARE, SELFPAY ==
[2019-08-13 19:58] VITALS: BP 136/90; PULSE 83; PULSE 90; RESP 17; RESP 18; TEMP 36.2; O2SAT 100
--- NOTE | 2019-08-13 20:35 | EKG12_ITS ---
Test Reason : [facility] Blood Pressure : / mmHG Vent. Rate : 083 BPM Atrial Rate : 083 BPM P-R Int : 128 ms QRS Dur : 088 ms QT Int : 446 ms P-R-T Axes : 000 -14 029 degrees QTc Int : 524 ms Normal sinus rhythm Left ventricular hypertrophy Prolonged QT Nonspecific ST-segment abnormality Abnormal ECG Confirmed by VANESSA MUNIZ, GWENDOLYN ([id number]), slot editor ANJANA DAVID ([id number]) on 08/15/2019 9:41:55 AM Referred By: YVROSE Confirmed By:GWENDOLYN MENDEZ MD
[2019-08-13 21:01] LABS: Absolute Neutrophil Count 5.7 X10^3/uL (2.0-7.7); Basophil# 0.02 X10^3/uL; Basophil% 0.2 % (0-1); Eosinophil# 0.01 X10^3/uL; Eosinophils% 0.1 % (0-5); Hematocrit 36.6 % (37-47); Hemoglobin 11.7 g/dL (12.0-15.0); Lymphocyte % 24.5 % (19-41); Mean Corpuscular Hgb 31.6 pg (27.0-32.0); Mean Corpuscular Volume 98.9 fL (81-99); Mean Platelet Vol. 9.6 fl (6.2-12.0); Monocyte# 0.67 X10^3/uL; Monocyte% 7.8 % (0-10); NRBC Flagged by Analyzer 0 % (0-5); Neutrophil # 5.74 X10^3/uL (2.7-7.7); Neutrophil % 67.2 % (47-70); Platelet Count 241 K/mm3 (150-450); RBC Distribution Width CV 12.8 % (11.6-14.6); RBC Distribution Width SD 46.5 fl (35.1-43.9); White Blood Count 8.6 K/mm3 (4.4-11.0)
[2019-08-13 21:03] LABS: Anion Gap 9 (5-15); BUN 25 mg/dL (7-18); BUN/Creat Ratio 17.6 RATIO (10-20); Calcium,Total 9.4 mg/dL (8.5-10.1); Chloride 107 mmol/L (98-107); Creatinine, Serum 1.42 mg/dL (0.55-1.02); EST Glomerular Filtration Rate 42 mL/min (>60); Est Glom Filt Rate - Afr Amer 50 mL/min (>60); Estimated Creatinine Clearance 49.53 ml/min; Glucose 94 mg/dL (74-106); Potassium 3.5 mmol/L (3.5-5.1); Sodium Level 142 mmol/L (136-145)
--- NOTE | 2019-08-13 21:10 | RAD_ITS ---
STUDY: X-RAY CHEST REASON FOR EXAM: Female, 49 years old. CONFUSION, MENTAL HEALTH CONCERNS TECHNIQUE: AP portable COMPARISON: September 06, 2017 FINDINGS: The lungs are clear and expanded. There is no demonstrated pleural abnormality. Mild cardiomegaly. Normal mediastinum and krystian. Normal visualized pulmonary arteries. Tortuous aortic arch and descending thoracic aorta. Normal visualized thoracic spine. Normal visualized ribs, clavicles, and shoulders. Epidural stimulator noted within the dorsal spinal canal There is no demonstrated abnormality of the visualized soft tissue structures of the upper abdomen. RAD/Chest 1 View (Portable) IMPRESSION: ASHD. No acute disease. Electronically Signed: Nam Velazquez MD at 21:32 EDT , Service support ,
[2019-08-13 21:12] LABS: Alcohol, Blood (Medical)-Serum < 3.0 mg/dL
[2019-08-13 21:13] LABS: Bacteria 0 SEEN /hpf (None Seen)
[2019-08-13 21:18] LABS: Color, Urine Yellow (Yellow); Glucose, Dipstick 50 mg/dl (Normal); Ketone-Dipstick 5 mg/dl (Negative); Leukocyte Esterase-Dipstick 25 /ul (Negative); Nitrite-Dipstick Negative (Negative); Occult Blood-Urine 50 /ul (Negative); Protein-Dipstick 100 mg/dl (Negative); Specific Gravity, Urine 1.015 (1.002-1.030); Urine Bilirubin Dipstick Negative (Negative); Urine Clarity Sl. Cloudy (Clear); Urine Urobilinogen Normal (Normal); Urine pH 6.5 (5.0 - 8.0)
--- NOTE | 2019-08-13 21:19 | CM.ED ---
SOCIAL WORK INFORMANT: DR. WEBSTER REASON FOR REFERRAL: MENTAL HEALTH EVALUATION CHIEF COMPLIANT: PATIENT BROUGHT IN BY POLICE FOR MENTAL HEALTH EVAL. PATIENT STATING I HAVEN'T SEEN MY GRANDKIDS.
[2019-08-13 21:25] LABS: Mucous, Urine 1+ /hpf (<or=2+); Red Blood Cells-Urine 0-5 SEEN /hpf (0-5); Squamous Epithelial Cells - UA 0-5 SEEN /hpf (5-10); White Blood Cells 0-5 SEEN /hpf (0-5)
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
[2019-08-13 21:30] LABS: Amphetamine Urine VISTA NEGATIVE (<1000 ng/mL); Barbiturate Urine VISTA NEGATIVE (< 200 ng/mL); Benzodiazepine Urine VISTA NEGATIVE (< 200 ng/mL); Cocaine Urine VISTA NEGATIVE (< 300 ng/mL); Ecstacy Urine VISTA NEGATIVE (< 500 ng/mL); Methadone Urine VISTA NEGATIVE (< 300 ng/mL); PCP Urine VISTA NEGATIVE (< 25 ng/mL); THC Urine VISTA NEGATIVE (< 50 ng/mL); Vista UDS pH Range 6
[2019-08-13 22:00] VITALS: RESP 17
--- NOTE | 2019-08-13 22:18 | ED.DCSUM_ITS ---
History of Present Illness Chief Complaint: Mental Health Informant: Patient, Friend, Balloon Tester Onset: Today Narrative: Patient is a 49-year-old female with history of schizophrenia as well as CKD presenting with concern for increased confusion. Patient was found walking outside with no shoes on. Her friend that she seemed dazed and confused. The friend called police who brought her to the emergency room. Patient states she thought she smelled smoke and was looking for source of the smoke outside. She also states she has been more depressed lately because she has not seen her grandchildren in 6 months. They were taken away by CPS. Before that they were living with her and her daughter. In addition patient has been arguing with her daughter over the past week. She had been taking with her friend but can no longer stay there so she has to go back with her daughter. Patient receives a monthly injection for her schizophrenic medication and states she is been compliant. Check she has an appointment next week to follow-up with her psychologist. Patient states she is been more fatigued lately but denies any other complaints. She did recently have a UTI and her friend was worried that she might have some type of severe infection as well. No reports of any fever, abdominal pain, nausea, vomiting or any other systemic symptoms. Patient denies any homicidal suicidal ideations. She denies any delusions or hallucinations. Past Medical History - Allergies and Home Meds Allergies/Adverse Reactions: Allergies Penicillins Allergy (Verified 08/13/19 19:57) Swelling Primary Care Physician: Pito Walker MD [Primary Care Provider] - Past Medical History: - - Coronary artery disease, history of DVT, hypertension, fibromyalgia, schizophrenia Surgical History: hysterectomy, - - Defibrillator placement Lives: With Family Smoking Status: Current every day smoker - Family History Maternal Family History: Family History (Last Reviewed 11/16/18 @ 11:36 by Elidia Estrella) Other H/O tubal ligation Family History: Reports: Unknown - Patient does not know if her mother had cardiac disease, - Paternal Family History: Family History (Last Reviewed 11/16/18 @ 11:36 by Elidia Estrella) Other H/O tubal ligation Family History: Reports: Unknown - Patient does not know if her father had cardiac history Review of Systems General: Reports: Malaise. Denies: Chills, Fever, Sweats Eyes: Denies: Visual changes - bilaterally, Diplopia ENT: Denies: Rhinorrhea, Sore throat Cardiovascular: Denies: Chest pain, Palpitations Respiratory: Denies: Dyspnea, Cough, Dyspnea on exertion Gastrointestinal: Denies: Abdominal pain, Nausea, Vomiting, Diarrhea, Melena, Hematochezia Genitourinary: Denies: Dysuria, Hematuria, Frequency Musculoskeletal: Denies: Back pain, Extremity Pain Skin: Denies: Rash, Wounds Neurological: Denies: Headache, Weakness, Numbness Physical Exam Vital Signs/Narrative: Vital Signs Temp Pulse Resp BP Pulse Ox 08/13/19 22:00 17 08/13/19 19:58 97.2 F L 90 17 136/90 H 100 Inital Vital Signs reviewed: Yes General: Well nourished, Well developed, No Acute Distress Head: Normocephalic, Atraumatic Eyes: Perrl, EOMI ENT: Moist mucous membranes, No rhinorrhea Neck: Supple, Nontender Cardiovascular: Regular rate, Regular rhythm, No murmurs Respiratory: No distress, CTA bilaterally, Chest nontender Abdomen: Soft, Nontender, Nondistended, Normal bowel sounds Back: Nontender, Normal Inspection Extremities: Nontender, No edema Skin: Normal color, No rash Neurological: Alert, Oriented x3, Cranial nerves II-XII grossly intact, Normal Strength, Normal Sensation Psychological: Normal Mood, - - Patient is a slightly flat affect but is behaving appropriately. She seems to have good insight and is very aware of what is going on in her life and in her surroundings. Patient seems to have good judgment. Her speech is calm and him tech. Diagnostic/Tx/Re-eval Chest X-Ray - ED: 1 View, Read by ED Physician, Read by Radiologist, No Acute Disease Clinical Impression(s) from Imaging Studies Chest X-Ray 08/13/19 21:10 IMPRESSION: ASHD. No acute disease. Electronically Signed: Nam Velazquez MD at 21:32 EDT , Service support , Laboratory Data 08/13/19 08/13/19 08/13/19 20:20 20:20 20:20 WBC 8.6 RBC 3.70 L Hgb 11.7 L Hct 36.6 L MCV 98.9 MCH 31.6 MCHC 32.0 RDW Std Deviation 46.5 H RDW Coeff of Mary 12.8 Plt Count 241 MPV 9.6 Immature Gran % (Auto) 0.200 Neut % (Auto) 67.2 Lymph % (Auto) 24.5 Valley % (Auto) 7.8 Eos % (Auto) 0.1 Baso % (Auto) 0.2 Absolute Neuts (auto) 5.7 Absolute Lymphs (auto) 2.10 Nucleated RBC % 0 Sodium 142 Potassium 3.5 Chloride 107 Carbon Dioxide 26.0 Anion Gap 9 BUN 25 H Creatinine 1.42 H Estim Creat Clear Calc 49.53 Est GFR (MDRD) Af Amer 50 L Est GFR (MDRD) Non-Af 42 L BUN/Creatinine Ratio 17.6 Glucose 94 Calcium 9.4 Urine Color Urine Clarity Urine pH Ur Specific [place] Urine Protein Urine Glucose (UA) Urine Ketones Urine Occult Blood Urine Nitrite Urine Bilirubin Urine Urobilinogen Ur Leukocyte Esterase Urine RBC Urine WBC Ur Squamous Epith Cells Urine Bacteria Urine Mucus Urine Opiates Screen Urine Methadone Screen Ur Barbiturates Screen Ur Phencyclidine Scrn Ur Amphetamines Screen U Methamphetamin-MDMA U Benzodiazepines Scrn Urine Cocaine Screen U Cannabinoids Screen Ur Drug Screen Comment Ethyl Alcohol < 3.0 08/13/19 08/13/19 21:05 21:05 WBC RBC Hgb Hct MCV MCH MCHC RDW Std Deviation RDW Coeff of Mary Plt Count MPV Immature Gran % (Auto) Neut % (Auto) Lymph % (Auto) Valley % (Auto) Eos % (Auto) Baso % (Auto) Absolute Neuts (auto) Absolute Lymphs (auto) Nucleated RBC % Sodium Potassium Chloride Carbon Dioxide Anion Gap BUN Creatinine Estim Creat Clear Calc Est GFR (MDRD) Af Amer Est GFR (MDRD) Non-Af BUN/Creatinine Ratio Glucose Calcium Urine Color Yellow Urine Clarity Sl. Cloudy Urine pH 6.5 Ur Specific [place] 1.015 Urine Protein 100 H Urine Glucose (UA) 50 H Urine Ketones 5 H Urine Occult Blood 50 H Urine Nitrite Negative Urine Bilirubin Negative Urine Urobilinogen Normal Ur Leukocyte Esterase 25 H Urine RBC 0-5 SEEN Urine WBC 0-5 SEEN Ur Squamous Epith Cells 0-5 SEEN Urine Bacteria 0 SEEN Urine Mucus 1+ Urine Opiates Screen NEGATIVE Urine Methadone Screen NEGATIVE Ur Barbiturates Screen NEGATIVE Ur Phencyclidine Scrn NEGATIVE Ur Amphetamines Screen NEGATIVE U Methamphetamin-MDMA NEGATIVE U Benzodiazepines Scrn NEGATIVE Urine Cocaine Screen NEGATIVE U Cannabinoids Screen NEGATIVE Ur Drug Screen Comment Ethyl Alcohol - Rhythm Strip Rhythm Strip: Sinus Rhythm Rate: 83 Ectopy: None - EKG Initial EKG Interpretation: Sinus Rhythm, - - Normal sinus rhythm at a rate of 83 Prolonged QT C of 524 Left axis deviation LVH present Normal ST segments Compared to prior EKG on 10/24/2018 patient has new LVH and new QTC prolongation - Medical Decision Making Patient is evaluated for concern of generalized malaise and odd behavior. Patient's is behaving normally in the emergency room does have a flat affect and seems fatigued. She is acting appropriately and I do not think she requires an inpatient psychiatric evaluation. She seems to be alert and oriented and have capacity. Patient is evaluated by social work who confirms the patient has a safe place to stay and that there are no further concerns. Medical work-up is obtained including EKG, chest x-ray, CBC, BMP, urinalysis and urine drug. These are all grossly unremarkable. Patient does have CKD which is mostly unchanged. No signs of an acute infection or any other issues that might require ho spitalization at this time. Patient is requesting to go home. She be discharged home. Her friend is able to pick her up. She has follow-up with her psychiatrist. Patient is counseled on signs and symptoms requiring return to the emergency room. Patient verbalizes agreement and understand this plan. Patient discharged home in stable and improved condition. ED Disposition - Plan for ED Patient: Disposition: Home or Assisted Living Diagnosis: Malaise and fatigue Instructions: ED Weakness [facility] Referrals: Pito Walker MD [Primary Care Provider] - Additional Instructions: Your work-up was overall normal today. There is no signs of an infection. Please return the emergency room if you have any worsening symptoms or you would like a reevaluation.
[2019-08-13 22:42] VITALS: BP 119/71; PULSE 71; RESP 17; O2SAT 99
== END 2019-08-13 22:42 | disposition home or self-care (01) ==
PROVIDERS: Emergency Provider Emergency Medicine; PCP Family Medicine
DX: R53.81 Other malaise (principal); R53.83 Other fatigue; I12.9 Hypertensive chronic kidney disease with stage 1 through stage 4 chronic kidney disease, or unspecified chronic kidney disease; N18.9 Chronic kidney disease, unspecified; I25.10 Atherosclerotic heart disease of native coronary artery without angina pectoris; M79.7 Fibromyalgia; F20.9 Schizophrenia, unspecified; Z86.718 Personal history of other venous thrombosis and embolism; Z87.440 Personal history of urinary (tract) infections; Z95.810 Presence of automatic (implantable) cardiac defibrillator; Z79.899 Other long term (current) drug therapy
CPT/HCPCS: 71045; 80048; 80307; 80320; 81001; 85025; 93005; 99282; G0480